=== PATIENT | male | born 1950 | race Caucasian/White ===

== ENCOUNTER 2023-12-01 08:48 | Outpatient (CLI) | payer MEDICARE, SELFPAY ==
[2023-12-01 09:21] LABS: Microscopic, Urine URINE MICROSCOPIC (MICROSCOPIC)
[2023-12-01 09:54] LABS: Appearance,Urine SL CLOUDY (Clear); Bilirubin,Urine Negative (Negative); Blood, Urine TRACE-I (Negative); Color,Urine YELLOW (Yellow); Glucose,Urine (UA) Negative (Negative); Ketones,Urine Negative (Negative); Leukocyte Esterase,Urine Negative (Negative); Nitrate,Urine Negative (Negative); PH,Urine 6.5 (5.0-8.5); Protein,Urine Negative (Negative); Specific Gravity, Urine 1.015 (1.005-1.030)
[2023-12-01 10:11] LABS: Bacteria,Urine 4+ /lpf
== END 2023-12-01 23:59 ==
LOC: LAB.DROPOF 08:55
PROVIDERS: PCP Internal Medicine Adolescent Medicine; Visit Provider Internal Medicine Adolescent Medicine
DX: R41.0 Disorientation, unspecified (principal); B96.89 Other specified bacterial agents as the cause of diseases classified elsewhere
CPT/HCPCS: 81001; 87086

== ENCOUNTER 2023-12-07 19:22 | Outpatient (CLI) | payer MEDICARE, SELFPAY ==
[2023-12-07 20:04] LABS: Basophils % 0.6 % (0.1-2.0); Eosinophils # 0.1 K/mm3 (0.0-0.4); Eosinophils % 2.6 % (0.1-12.0); Hematocrit 40.3 % (42.0-52.0); Hemoglobin 13.8 g/dL (14.1-18.0); Lymphocytes # 1.7 K/mm3 (0.7-4.5); Lymphocytes % 34.6 % (10-50); Mean Corpuscular HGB Conc 34.3 g/dL (31.8-35.4); Mean Corpuscular Hemoglobin 32.1 pg (27.0-31.2); Mean Corpuscular Volume 93.4 fl (80-94); Mean Platelet Volume 8.7 fl (7.4-10.4); Monocytes # 0.3 K/mm3 (0.1-1.0); Monocytes % 6.9 % (1.7-9.3); Neutrophils # 2.7 K/mm3 (1.8-7.8); Neutrophils % 55.1 % (37.0-80.0); Platelet Count 160 K/mm3 (142-424); Red Blood Count 4.32 M/mm3 (4.60-6.20); Red Cell Distribution Width 14.9 % (11.5-17.5); White Blood Count 4.8 K/mm3 (4.8-10.8)
[2023-12-07 22:21] LABS: Chloride 101 mmol/L (98-107); Sodium 138 mmol/L (136-145)
[2023-12-07 22:24] LABS: Blood Urea Nitrogen 16 mg/dl (9-20); Calcium 8.7 mg/dl (8.4-10.2); Carbon Dioxide 31 mmol/L (22.0-30.0); Estimated Glomerular Filt Rate 163 ml/min (>60); GFR (African American) 197 ML/MIN (>60); Glucose 158 mg/dl (74-100)
== END 2023-12-07 23:59 ==
LOC: LAB.DROPOF 19:23
PROVIDERS: Nurse Practitioner Family; PCP Internal Medicine Adolescent Medicine; Visit Provider Internal Medicine Adolescent Medicine
DX: R41.0 Disorientation, unspecified
CPT/HCPCS: 80048; 83735; 84443; 85025

== ENCOUNTER 2023-12-26 02:43 | Outpatient (CLI) | payer MEDICARE, SELFPAY ==
[2023-12-26 02:51] LABS: Microscopic, Urine URINE MICROSCOPIC (MICROSCOPIC)
[2023-12-26 02:54] LABS: Appearance,Urine TURBID (Clear); Bilirubin,Urine Negative (Negative); Blood, Urine Negative (Negative); Color,Urine YELLOW (Yellow); Glucose,Urine (UA) Negative (Negative); Ketones,Urine Negative (Negative); Leukocyte Esterase,Urine TRACE (Negative); Nitrate,Urine Negative (Negative); PH,Urine 7.5 (5.0-8.5); Protein,Urine Negative (Negative); Specific Gravity, Urine 1.015 (1.005-1.030)
[2023-12-26 03:05] LABS: Amorphous Sediment,Urine Trace /lpf; Bacteria,Urine 3+ /lpf; Squamous Epithelial Cell,Urine Occasional #/hpf (0-5)
== END 2023-12-26 23:59 ==
PROVIDERS: PCP Internal Medicine Adolescent Medicine; Visit Provider Internal Medicine Adolescent Medicine
DX: R41.0 Disorientation, unspecified (principal)
CPT/HCPCS: 81001; 87086

== ENCOUNTER 2024-01-14 18:02 | Inpatient (IN) | payer MEDICARE, BC, SELFPAY ==
[2024-01-14] VITALS (10 sets, daily range): BP systolic 92–114; BP diastolic 56–74; PULSE 84–102; RESP 15–21; TEMP 37–37.2; O2SAT 88–97; BMI 19.5
--- NOTE | 2024-01-14 18:06 | CT_ITS ---
PROCEDURE INFORMATION: Exam: CT Head Without Contrast Exam date and time: 01/14/2024 7:55 PM Age: 73 years old Clinical indication: Altered mental status/memory loss and other: Seizures; Confusion or disorientation; Additional info: Seizure like activity TECHNIQUE: Imaging protocol: Computed tomography of the head without contrast. Radiation optimization: All CT scans at this facility use at least one of these dose optimization techniques: automated exposure control; mA and/or kV adjustment per patient size (includes targeted exams where dose is matched to clinical indication); or iterative reconstruction. COMPARISON: No relevant prior studies available. FINDINGS: Brain: Old right cerebral infarct with involvement of the frontal, temporal, and parietal lobes. Extensive white matter change in the residual white matter appears to reflect chronic microvascular disease. There is some low-density in the anterior right brainstem (image 27 series 3). No evidence for acute intracranial hemorrhage. No midline shift or mass effect. Cerebral ventricles: Ex vacuo dilatation of the right lateral ventricle is noted. Paranasal sinuses: Visualized sinuses are unremarkable. No fluid levels. Mastoid air cells: Visualized mastoid air cells are well aerated. Dental: There is dental amalgam which causes streak artifact and mildly limits evaluation of the oral cavity. Bones/joints: Unremarkable. No acute fracture. Soft tissues: Unremarkable. Other findings: Motion artifact mildly limits evaluation. IMPRESSION: Old large territorial right cerebral infarct. Additional scattered areas of hypodensity including within the brainstem which appear chronic and related to white matter change but for which MRI should be considered.
--- NOTE | 2024-01-14 18:06 | XR_ITS ---
PROCEDURE INFORMATION: Exam: XR Chest Exam date and time: 01/14/2024 7:13 PM Age: 73 years old Clinical indication: Other: AMS, seizures TECHNIQUE: Imaging protocol: Radiologic exam of the chest. Views: 1 view. COMPARISON: No relevant prior studies available. FINDINGS: Tubes, catheters and devices: There is a left chest implanted cardiac device. Lungs: Prominence of the central pulmonary vasculature with small perihilar consolidations difficult to exclude. Pleural spaces: No large effusion or pneumothorax. Heart/Mediastinum: No evidence of mediastinal widening or cardiac silhouette enlargement; the mediastinum and heart appear within normal limits for contour and size. Diaphragm: There is elevation of the left hemidiaphragm. Bones/joints: No evidence of acute osseous abnormalities within the visualized portions of the thoracic spine and ribs. Osseous structures appear appropriate for patient age. Other findings: The patient is rotated on the examination which somewhat alters the expected anatomic relationships and limits the study. IMPRESSION: Prominence of the central pulmonary vasculature with small perihilar consolidations difficult to exclude.
--- NOTE | 2024-01-14 18:12 | CT_ITS ---
PROCEDURE INFORMATION: Exam: CTA Neck With Contrast Exam date and time: 01/14/2024 7:57 PM Age: 73 years old Clinical indication: Convulsions / seizures; Type not specified; Additional info: Seizure like activity, L gaze preference TECHNIQUE: Imaging protocol: Computed tomographic angiography of the neck with contrast. Exam focused on the cervical segments of the vasculature. 3D rendering (Not supervised by radiologist): MIP and/or 3D reconstructed images were created by the technologist. Radiation optimization: All CT scans at this facility use at least one of these dose optimization techniques: automated exposure control; mA and/or kV adjustment per patient size (includes targeted exams where dose is matched to clinical indication); or iterative reconstruction. Contrast material: ISOVUE 370; Contrast volume: 100 ml; Contrast route: INTRAVENOUS (IV); COMPARISON: 1. CT ANGIO HEAD 01/14/2024 7:[address] HEAD/BRAIN WO CON 01/14/2024 7:55 PM 3. CR XR CHEST PORTABLE 01/14/2024 7:13 PM FINDINGS: Tubes, catheters and devices: There is a left chest implanted cardiac device. Right common carotid artery: No stenosis. No dissection or occlusion. Right internal carotid artery: No stenosis of the extracranial segment. No dissection or occlusion. Right external carotid artery: No occlusion or stenosis of the origin. Left common carotid artery: No stenosis. No dissection or occlusion. Left internal carotid artery: No stenosis of the extracranial segment. No dissection or occlusion. Left external carotid artery: No occlusion or stenosis of the origin. Right vertebral artery: No stenosis. No dissection or occlusion. Left vertebral artery: No stenosis. No dissection or occlusion. Diminutive left vertebral artery with a right dominant vertebrobasilar system. Soft tissues: Normal. No significant soft tissue swelling. Bones/joints: No acute fracture. IMPRESSION: No stenosis or occlusion. REFERENCES: NASCET CRITERIA. The degree of stenosis in the cervical segment of the internal carotid artery is based on NASCET criteria. Normal is no stenosis. Mild is less than 50% stenosis. Moderate is 50-69% stenosis. Severe is 70% to 99% stenosis. Total occlusion is no detectable patent lumen.
--- NOTE | 2024-01-14 18:12 | CT_ITS ---
PROCEDURE INFORMATION: Exam: CTA Head With Contrast, Arteriography Exam date and time: 01/14/2024 7:57 PM Age: 73 years old Clinical indication: Other: Seizures; Additional info: Seizure like activity, L gaze preference TECHNIQUE: Imaging protocol: Computed tomographic angiography of the head with contrast. Exam focused on the arteries. 3D rendering (Not supervised by radiologist): MIP and/or 3D reconstructed images were created by the technologist. Radiation optimization: All CT scans at this facility use at least one of these dose optimization techniques: automated exposure control; mA and/or kV adjustment per patient size (includes targeted exams where dose is matched to clinical indication); or iterative reconstruction. Contrast material: ISOVUE 370; Contrast volume: 100 ml; Contrast route: INTRAVENOUS (IV); COMPARISON: 1. CT HEAD/BRAIN WO CON 01/14/2024 7:[address] ANGIO NECK 01/14/2024 7:57 PM FINDINGS: ANTERIOR CIRCULATION: Right internal carotid artery: There is a relatively diminutive right internal carotid artery. Right middle cerebral artery: There is is significantly diminutive right middle cerebral artery. No evidence for acute large vessel occlusion. Right anterior cerebral artery: No occlusion or significant stenosis. No aneurysm. Left internal carotid artery: Intracranial segment is patent with no significant stenosis. No aneurysm. Left middle cerebral artery: No occlusion or significant stenosis. No aneurysm. Left anterior cerebral artery: No occlusion or significant stenosis. No aneurysm. POSTERIOR CIRCULATION: Right vertebral artery: No occlusion or significant stenosis. No aneurysm. Left vertebral artery: No occlusion or significant stenosis. No aneurysm. Basilar artery: No occlusion or significant stenosis. No aneurysm. Right posterior cerebral artery: No occlusion or significant stenosis. No aneurysm. Left posterior cerebral artery: No occlusion or significant stenosis. No aneurysm. Brain: No definite mass, mass effect, or midline shift. Cerebral ventricles: No ventriculomegaly. Bones/joints: Unremarkable. No acute fracture. Soft tissues: Unremarkable. IMPRESSION: Significantly diminutive right internal carotid and middle cerebral arteries, likely sequela of old infarct. No acute large vessel occlusion or vascular anomaly is identified.
[2024-01-14] MEDS: LORazepam 2MG/ML VIAL 2 MG IV (18:18)
[2024-01-14] MEDS: levETIRAcetam 2,000 MG in 0.9 % SODIUM CHLORIDE 100 ML 240 MG IV (18:30)
--- NOTE | 2024-01-14 18:34 | ED_ITS ---
Discharge Plan Disposition Patient Disposition: Admitted Clinical Impressions Clinical Impression: Breakthrough seizure, Altered mental status, Elevated troponin Discharge ED Provider: Beckie Diaz General Adult HPI General Chief complaint: Seizure Stated complaint: seizures Time Seen by Provider: 01/14/24 18:05 Mode of Arrival: EMS Source of Information: EMS Limitations: Physical Limitations Description of Symptoms (Recalled from ER Triage Doc. by RN): Per EMS patient has been having reoccuring seizures. 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 According nursing facility report, the patient has had seizure-like activity today. EMS noted that he did have a brief 22nd seizure en route, which resolved spontaneously with no abortive medications administered. Otherwise, he remained stable en route, but confused. He was able to talk to them. Per nursing facility, his baseline is alert but pleasantly confused. No other acute concerns noted at this time. Related Data Home Medications Medication Instructions Recorded Confirmed atorvastatin 80 mg tablet 80 mg feeding tube ONCE Cholesterol 01/14/24 01/14/24 famotidine 40 mg tablet 40 mg feeding tube DAILY 01/14/24 01/14/24 finasteride 5 mg tablet 5 mg feeding tube DAILY 01/14/24 01/14/24 fluticasone propionate 50 1 spray intranasal DAILY allergies 01/14/24 01/14/24 mcg/actuation nasal spray,suspension furosemide 20 mg tablet 20 mg PO DAILY diuretic 01/14/24 01/14/24 ipratropium 0.5 mg-albuterol 3 mg 1 ml inhalation QID Breathing 01/14/24 01/14/24 (2.5 mg base)/3 mL nebulization Problems soln levetiracetam 750 mg tablet 750 mg PO BID 01/14/24 01/14/24 metoprolol succinate 25 mg 25 mg PO DAILY 01/14/24 01/14/24 tablet,extended release 24 hr ondansetron 4 mg disintegrating 4 mg feeding tube Q8HP PRN Nausea 01/14/24 01/14/24 tablet rivaroxaban 20 mg tablet (Xarelto) 20 mg G-tube DAILY 01/14/24 01/14/24 sertraline 50 mg tablet 1 mg feeding tube DAILY Depression 01/14/24 01/14/24 valsartan 40 mg tablet 20 mg feeding tube DAILY 01/14/24 01/14/24 Allergies Allergy/AdvReac Type Severity Reaction Status Date / Time No Known Allergies Allergy Verified 01/14/24 18:14 [facility] Disclaimer: The information contained in this section may have been updated after the patient was seen, as this information can be updated by other users. Social History Smoking Status: Never smoker alcohol intake: never current occupational status: retired Travel in the last 8 weeks: None ROS Obtained: Yes All systems reviewed & no additional complaints except as documented Physical Exam General General appearance: in distress Comment: Appears to be seizing on initial evaluation with left gaze preference/eye twitching and twitching movements of his right upper and lower extremity. Head Head exam: atraumatic and normocephalic Eye Eye exam: Present PERRL and other (Left gaze preference) ENT ENT exam: Present normal exam, normal oropharynx, mucous membranes moist and normal external ear exam Neck Neck exam: Present normal inspection, full ROM and trachea midline; Absent tenderness Chest Chest inspection: Present normal inspection and symmetric chest wall rise; Absent tenderness Respiratory Respiratory exam: Present normal lung sounds bilaterally; Absent respiratory distress, wheezes, stridor or accessory muscle use Cardiovascular Cardiovascular exam: Present regular rate and normal rhythm Abdominal Exam Abdominal exam: Present soft; Absent distention, tenderness, guarding, rebound or rigidity Extremities Exam Extremities exam: Present normal inspection, full ROM and normal capillary refill; Absent tenderness or edema Back Exam Back exam: Present normal inspection and full ROM; Absent tenderness Neurological Exam Neurological exam: Present other (Actively seizing on initial presentation.) Skin Skin exam: Present warm and dry Medical Decision Making Medical Records Medical records reviewed: Yes I reviewed the patient's medical records. [place] Inquiry Pt receiving controlled substance: No Vital Signs: 01/14/24 18:03 01/14/24 19:00 01/14/24 19:30 Temperature 98.6 F Temperature Source Axillary Pulse Rate 102 H 97 H Pulse Rate [Radial] 95 H Respiratory Rate 18 15 17 Blood Pressure 111/70 112/74 Blood Pressure [Right Arm] 92/56 L Blood Pressure Mean Blood Pressure Mean [Right Arm] 68 Blood Pressure Source Blood Pressure Source [Right Arm] Automatic Cuff Blood Pressure Position Blood Pressure Position [Right Arm] Supine 02 Sat by Pulse Oximetry 91 L 92 L 92 L Oxygen Delivery Method Room Air 01/14/24 20:09 01/14/24 20:30 01/14/24 21:00 Temperature Temperature Source Pulse Rate 94 H 99 H Pulse Rate [Radial] Respiratory Rate Blood Pressure 112/70 100/66 L 104/64 L Blood Pressure [Right Arm] Blood Pressure Mean 80 75 Blood Pressure Mean [Right Arm] Blood Pressure Source Blood Pressure Source [Right Arm] Blood Pressure Position Blood Pressure Position [Right Arm] 02 Sat by Pulse Oximetry 92 L 88 L Oxygen Delivery Method 01/14/24 21:30 01/14/24 22:00 01/14/24 22:30 Temperature Temperature Source Pulse Rate 86 89 Pulse Rate [Radial] Respiratory Rate 21 16 16 Blood Pressure 112/73 105/63 L 114/67 Blood Pressure [Right Arm] Blood Pressure Mean Blood Pressure Mean [Right Arm] Blood Pressure Source Blood Pressure Source [Right Arm] Blood Pressure Position Blood Pressure Position [Right Arm] 02 Sat by Pulse Oximetry 96 93 L 97 Oxygen Delivery Method 01/14/24 23:00 Temperature 98.9 F Temperature Source Oral Pulse Rate 84 Pulse Rate [Radial] Respiratory Rate 18 Blood Pressure 110/72 Blood Pressure [Right Arm] Blood Pressure Mean Blood Pressure Mean [Right Arm] Blood Pressure Source Automatic Cuff Blood Pressure Source [Right Arm] Blood Pressure Position Supine Blood Pressure Position [Right Arm] 02 Sat by Pulse Oximetry Oxygen Delivery Method Room Air Lab Data Lab results reviewed: Yes I reviewed the patient's lab results. Lab Results 01/14/24 18:06: VBG pH 7.34, VBG pCO2 49.2, VBG pO2 98.3 H, VBG HCO3 26.1, VBG Total CO2 27.6 H, VBG O2 Saturation 97.3 H, VBG Base Excess 0.3 01/14/24 18:59: WBC 7.9, RBC 4.51 L, Hgb 14.7, Hct 44.4, MCV 98.4 H, MCH 32.6 H, MCHC 33.1, RDW 13.7, Plt Count 195, MPV 9.3, Neut % (Auto) 75.0, Lymph % (Auto) 17.4, Mcminn % (Auto) 5.5, Eos % (Auto) 1.4, Baso % (Auto) 0.7, Neut # (Auto) 5.9, Lymph # (Auto) 1.4, Mcminn # (Auto) 0.4, Eos # (Auto) 0.1, Baso # (Auto) 0.1, PT 11.9, INR 1.11 H, APTT 27.5, Sodium 137, Potassium 3.7, Chloride 101, Carbon Dioxide 27, Anion Gap 12.7, BUN 18, Creatinine 0.60 L, Estimated Creat Clear 68, Estimated GFR 132, Est GFR ( Amer) 160, Glucose 105 H, Calcium 9.2, Total Bilirubin 0.3, AST 30, ALT 31, Alkaline Phosphatase 69, Troponin I 0.10 H, NT-Pro-B Natriuret Pep 736 H, Total Protein 6.8, Albumin 4.0, Globulin 2.8, Albumin/Globulin Ratio 1.4, Lipase 48 01/14/24 19:22: VBG Lactic Acid 5.0 H 01/14/24 21:00: Urine Color Yellow, Urine Appearance Clear, Urine pH 7.5, Ur Specific [place] 1.010, Urine Protein Trace, Urine Glucose (UA) Negative, Urine Ketones Negative, Urine Blood Negative, Urine Nitrate Negative, Urine Bilirubin Negative, Urine Urobilinogen 0.2, Ur Leukocyte Esterase Negative, Urine RBC None, Urine WBC None, Ur Squamous Epith Cells Occasional, Urine Bacteria None 01/14/24 21:25: Troponin I 0.33 H 01/14/24 18:59 01/14/24 18:59 Orders (Tests/Meds): ED MEDICATIONS Generic Name Dose Route Start Last Admin Trade Name Freq PRN Reason Stop Dose Admin Acetaminophen 650 mg 01/14/24 22:30 Acetaminophen 325mg Tab PO 02/13/24 22:29 Q4HP PRN Fever or Mild Pain (1-3) Enoxaparin Sodium 40 mg 01/15/24 09:00 Enoxaparin 40mg/0.4ml Syringe SQ 02/14/24 08:59 DAILY JOSE D Sodium Chloride 1,000 mls @ 50 mls/hr 01/14/24 22:30 Sod Chlor 0.9% 1000ml Bag IV 02/13/24 22:29 .Q20H JOSE D Levetiracetam 1,000 mg/ Sodium 110 mls @ 220 mls/hr 01/15/24 09:00 Chloride IV 02/14/24 08:59 BID JOSE D Morphine Sulfate 2 mg 01/14/24 22:30 Morphine 2mg/Ml Syringe IV 02/13/24 22:29 Q2HP PRN Severe Pain (7-10) Nicotine 21 mg 01/14/24 22:30 Nicotine 21mg/24hr Patch TD 02/13/24 22:29 DAILYP PRN Nicotine Cravings Nitroglycerin 0.4 mg 01/14/24 22:32 Nitroglycerin 0.4mg Sl Tablet SL 02/13/24 22:31 Q5MINP PRN Chest Pain Ondansetron HCl 4 mg 01/14/24 22:30 Ondansetron 4mg/2ml Vial IV 02/13/24 22:29 Q8HP PRN Nausea Pantoprazole Sodium 40 mg 01/15/24 09:00 Pantoprazole 40mg Tablet PO 02/14/24 08:59 DAILY JOSE D Sodium Chloride 10 ml 01/14/24 18:12 Sodium Chloride 0.9% 10ml Vial IV 02/13/24 18:11 NEEDED PRN to Dilute Lorazepam inj Sodium Chloride 10 ml 01/14/24 18:14 Sodium Chloride 0.9% 10ml Vial IV 02/13/24 18:13 NEEDED PRN to Dilute Lorazepam inj Discontinued Medications Generic Name Dose Route Start Last Admin Trade Name Freq PRN Reason Stop Dose Admin Levetiracetam 2,000 mg/ Sodium 120 mls @ 240 mls/hr 01/14/24 18:09 01/14/24 18:30 Chloride IV 01/14/24 18:10 240 mls/hr ONCE ONE Administration Lactated Ringer's 1,000 mls @ 999 mls/hr 01/14/24 18:09 01/14/24 19:10 Lactated Ringer's 1000 Ml Bag IV 01/14/24 19:09 999 mls/hr .Q1H1M ONE Administration Iopamidol 100 ml 01/14/24 20:00 01/14/24 20:00 Iopamidol-370 (76%);100ml Bottle IV 01/14/24 20:01 100 ml ONCE ONE Administration Lorazepam 2 mg 01/14/24 18:12 01/14/24 18:18 Lorazepam 2mg/Ml Vial IV 01/14/24 18:13 2 mg ONCE ONE Administration Lorazepam 4 mg 01/14/24 18:14 01/14/24 23:08 Lorazepam 2mg/Ml Vial IV 01/14/24 18:15 Not Given ONCE ONE Sodium Chloride 10 ml 01/14/24 20:00 01/14/24 20:00 Sodium Chloride 0.9% 10ml Syr (Rad Only) IV 01/14/24 20:01 10 ml ONCE ONE Administration Sodium Chloride 50 ml 01/14/24 20:00 01/14/24 20:00 0.9 % Sodium Chloride 50 Ml Vial IV 01/14/24 20:01 50 ml ONCE ONE Administration ORDERS Category Date Time Status CT angio head Stat Cat Scan 01/14/24 18:[address] angio neck Stat Cat Scan 01/14/24 18:[address] head/brain wo con Stat Cat Scan 01/14/24 18:06 Completed Consult to Cardiology [CONS] Routine Cons 01/14/24 22:28 Active XR chest portable Stat Exams 01/14/24 18:06 Completed Activated Partial Thrombo Time Stat Lab 01/14/24 18:59 Completed Ammonia Stat Lab 01/14/24 18:06 Ordered Brain Natriuretic Peptide Stat Lab 01/14/24 18:59 Completed Complete Blood Count Auto Diff AMLAB Lab 01/15/24 06:00 Ordered Complete Blood Count Auto Diff Stat Lab 01/14/24 18:59 Completed Comprehensive Metabolic Panel AMLAB Lab 01/15/24 06:00 Ordered Comprehensive Metabolic Panel Stat Lab 01/14/24 18:59 Completed Lactate Venous Stat Lab 01/14/24 19:22 Completed Lipase Stat Lab 01/14/24 18:59 Completed Magnesium AMLAB Lab 01/15/24 06:00 Ordered Prothrombin Time INR Stat Lab 01/14/24 18:59 Completed Troponin I Q3H Lab 01/14/24 21:25 Completed Troponin I Q3H Lab 01/15/24 00:15 Ordered Troponin I Stat Lab 01/14/24 18:59 Completed Urinalysis and Microscopic Stat Lab 01/14/24 21:00 Completed Blood Culture Stat Micro 01/14/24 21:00 Received Urine Culture Stat Micro 01/14/24 21:00 Received Venous Blood Gas Stat RT 01/14/24 18:06 Completed ECG initial [place] Routine Y 01/14/24 19:05 Completed ECG Data Tracing #1: I reviewed this ECG and interpreted as documented below: Sinus tachycardia with a ventricular rate of 100 bpm. Interventricular conduction delay and left axis deviation. No significant changes noted from prior EKG from [facility] from 11/07. ECG initial impression date: 01/14/24 ECG initial impression time: 19:07 Tracing #2: I reviewed this ECG and interpreted as documented below: Normal sinus rhythm with a ventricular rate of 89 bpm. Acute changes from prior EKG with deeper T wave inversions in V3 V4. Does not meet STEMI criteria. ECG initial impression date: 01/14/24 ECG initial impression time: 22:26 Medical Decision Narrative: In summary, this patient is a 73-year-old male presenting to the Emergency Department for evaluation of seizures. Differential diagnoses considered include but are not limited to breakthrough seizures, intracranial hemorrhage, new CVA, intracranial mass, urinary tract infection, pneumonia. Ruling out the most morbid conditions drove assessment. On my initial assessment, I found the patient to be actively having a seizure. This resolved spontaneously, however given the frequent recurrence of seizures, he was given 2 mg of IV Ativan. Loaded with 2 g of Keppra. Workup included very broad evaluation including stroke CTs and CT angiograms, infectious workup, metabolic workup, and cardiac workup. I independently interpreted CT scans as well as chest x-ray prior to the radiologist read and noted no obvious new stroke, bleed, pneumonia, or other concerning. Please see their read for final interpretation. Labs were obtained that demonstrated elevated initial troponin of 0.10 as well as very mildly elevated BNP. Lactic acid is also elevated, which I feel is a result of the seizure activity that the patient has been having. Labs are otherwise reassuring with no acute concerns for infection such as leukocytosis or other issue. Electrolytes are within appropriate range. On multiple subsequent reassessments, the patient is resting comfortably with reassuring vital signs on cardiac telemetry. He has been very somnolent since administration of antiepileptics, however he is maintaining his airway well and arouses to voice. I had an indirect discussion with [facility] stroke team who advised that the patient does not have any acute stroke or LVO based on imaging. I then had an interactive discussion with her neurology team over the phone with regards to his seizure. Dr. Noel advised to increase his Keppra from 750 mg twice daily to 1000 mg twice daily. He also advised that he should follow-up outpatient sooner than his already scheduled appointment. He advised that we could keep him here for monitoring. Since he has not had recurrence of seizure-like activity over the course of 4 hours since arrival and administration of abortive medications, he advised that there is no indication for transfer. In the meantime, repeat troponin was obtained at 3 hours which demonstrated elevation to 0.33. Repeat EKG was obtained that did demonstrate some acute dynamic changes, however does not meet STEMI criteria. I called and had an interactive discussion with Dr. De La Paz with cardiology who advised he is no concern for ACS based on the EKG, however he will be happy to evaluate the patient in the hospital. Given his persistent altered mental status after this seizure-like activity, elevated troponins, and EKG changes, I called and had an interactive discussion with the hospitalist who admitted the patient for further evaluation and management. Critical Care Critical Care Time Critical Care Time: Yes Attestation: On 01/14/24, the high probability of a clinically significant, sudden or life threatening deterioration of the following system(s) (neurologic, cardiovascular, respiratory) required my full and direct attention, intervention and personal management. The time I documented below is in addition to time spent performing reported procedures but includes the following listed in this critical care notation. Total Time Total Critical Care Time: 45
--- NOTE | 2024-01-14 19:05 | ECG_ITS ---
APPROVED REPORT Exam: Resting ECG HR:100 bpm ECG Measurements Heart Rate 100 AXES DC 166 P 40 QRSd 133 QRS -61 QT 362 T 116 QTc 419 Conclusion SINUS TACHYCARDIA INTRAVENTRICULAR CONDUCTION DELAY [130+ ms QRS DURATION] LEFT VENTRICULAR HYPERTROPHY AND ST-T CHANGE - ? age of finding UNCONFIRMED REPORT Electronically signed by : José Luis Kaufman MD 01/15/2024 19:30:52
[2024-01-14] MEDS: LACTATED RINGERS 1000ML 1,000 ML 999 ML IV (19:10)
[2024-01-14 19:21] LABS: Chloride 101 mmol/L (98-107)
[2024-01-14 19:22] LABS: Activated Partial Thrombo Time 27.5 seconds (22.8-30.6); INR 1.11 (0.9-1.1); Potassium 3.7 mmoL/L (3.5-5.1); Prothrombin Time 11.9 seconds (10.1-12.5); Sodium 137 mmol/L (136-145)
[2024-01-14 19:24] LABS: Alanine Aminotransferase 31 U/L (12-78); Alkaline Phosphatase 69 U/L (38-126); Anion Gap 12.7 mEq/L (5-15); Aspartate Amino Transferase 30 U/L (17-59); Bilirubin,Total 0.3 mg/dl (0.2-1.3); Carbon Dioxide 27 mmol/L (22.0-30.0); Lipase 48 U/L (23-300)
[2024-01-14 19:25] LABS: Albumin/Globulin Ratio 1.4 (1.1-1.8); Calcium 9.2 mg/dl (8.4-10.2); Globulin 2.8 g/dL (1.3-3.2); Glucose 105 mg/dl (74-100); Total Protein,Serum 6.8 g/dl (6.3-8.2)
[2024-01-14 19:26] LABS: Basophils # 0.1 K/mm3 (0-0.2); Basophils % 0.7 % (0.1-2.0); Eosinophils # 0.1 K/mm3 (0.0-0.4); Eosinophils % 1.4 % (0.1-12.0); Hematocrit 44.4 % (42.0-52.0); Hemoglobin 14.7 g/dL (14.1-18.0); Lymphocytes # 1.4 K/mm3 (0.7-4.5); Lymphocytes % 17.4 % (10-50); Mean Corpuscular HGB Conc 33.1 g/dL (31.8-35.4); Mean Corpuscular Hemoglobin 32.6 pg (27.0-31.2); Mean Corpuscular Volume 98.4 fl (80-94); Mean Platelet Volume 9.3 fl (7.4-10.4); Monocytes # 0.4 K/mm3 (0.1-1.0); Monocytes % 5.5 % (1.7-9.3); Neutrophils # 5.9 K/mm3 (1.8-7.8); Platelet Count 195 K/mm3 (142-424); Red Blood Count 4.51 M/mm3 (4.60-6.20); Red Cell Distribution Width 13.7 % (11.5-17.5); White Blood Count 7.9 K/mm3 (4.8-10.8)
[2024-01-14 19:32] LABS: VBG Base Excess 0.3 mmol/L (-2.4-2.3); VBG HCO3 26.1 mmol/L (23-30); VBG Oxygen Saturation 97.3 % (50-70); VBG PCO2 49.2 mmol/L (35-51); VBG PH 7.34 mmol/L (7.31-7.41); VBG PO2 98.3 mmol/L (28-40); VBG Total CO2 27.6 mmol/L (23-27)
[2024-01-14 19:36] LABS: Blood Urea Nitrogen 18 mg/dl (9-20); Creatinine Clearance Estimated 68 mL/min (50-200); Estimated Glomerular Filt Rate 132 ml/min (>60); GFR (African American) 160 ML/MIN (>60)
[2024-01-14 19:49] LABS: NT Pro Brain Natriuretic Pep. 736 pg/mL (0-125)
[2024-01-14] MEDS: IOPAMIDOL-370 (76%);100ML BOTTLE 100 ML IV (20:00)
[2024-01-14] MEDS: SODIUM CHLORIDE 0.9% 10ML SYR (RAD ONLY) 10 ML IV (20:00)
[2024-01-14] MEDS: 0.9 % SODIUM CHLORIDE 50 ML VIAL IV (20:00)
[2024-01-14 21:20] LABS: Microscopic, Urine URINE MICROSCOPIC (MICROSCOPIC)
[2024-01-14 21:27] LABS: Appearance,Urine CLEAR (Clear); Bilirubin,Urine Negative (Negative); Blood, Urine Negative (Negative); Color,Urine YELLOW (Yellow); Glucose,Urine (UA) Negative (Negative); Ketones,Urine Negative (Negative); Leukocyte Esterase,Urine Negative (Negative); Nitrate,Urine Negative (Negative); PH,Urine 7.5 (5.0-8.5); Protein,Urine TRACE (Negative); Urobilinogen,Urine 0.2 EU/dl (0.2)
--- NOTE | 2024-01-14 21:32 | PC.NURSE ---
2nd mcgraw collected and sent to lab
--- NOTE | 2024-01-14 21:40 | PC.NURSE ---
spoke with Sarah @ [facility] transfer center, Dr. Natalie Lagunas being paged. Images power shared and disc requested
--- NOTE | 2024-01-14 21:42 | PC.NURSE ---
ED doctor on phone with Dr. Lagunas @ [facility]
--- NOTE | 2024-01-14 21:52 | PC.NURSE ---
on phone with
[2024-01-14 22:02] LABS: Troponin I 0.33 ng/ml (0.00-0.034)
[2024-01-14 22:11] LABS: Squamous Epithelial Cell,Urine Occasional #/hpf (0-5)
--- NOTE | 2024-01-14 22:21 | ECG_ITS ---
APPROVED REPORT Exam: Resting ECG HR:89 bpm ECG Measurements Heart Rate 89 AXES NM 179 P 63 QRSd 135 QRS -70 QT 377 T 129 QTc 423 Conclusion SINUS RHYTHM INTRAVENTRICULAR CONDUCTION DELAY [130+ ms QRS DURATION] ANTEROSEPTAL MYOCARDIAL INFARCTION of uncertain age UNCONFIRMED REPORT Electronically signed by : José Luis Kaufman MD 01/15/2024 19:30:09
--- NOTE | 2024-01-14 22:32 | P.HP_ITS ---
Attending attestation Patient was seen and evaluated at the bedside myself, agree with VIVIAN note. History of Present Illness *Admission Date: 01/14/24 *Reason for visit:: seizure *History of present illness: This is a 73-year-old male with a history of seizure disorder, [place], atrial fibrillation, CVA with residual left-sided deficits managed on Keppra presenting to the emergency department for evaluation with concern for seizure-like activity at the nursing facility. According nursing facility report, the patient has had seizure-like activity today. EMS noted that he did have a brief 22nd seizure en route, which resolved spontaneously with no abortive medications administered. Otherwise, he remained stable en route, but confused. He was able to talk to them. Per nursing facility, his baseline is alert but pleasantly confused. No other acute concerns noted at this time. admitted for further work up. [facility] Disclaimer: The information contained in this section may have been updated after the patient was seen, as this information can be updated by other users. Medical History (Updated 01/15/24 @ 04:17 by Umer Awan APRN) Heart attack Stroke Family History (Updated 01/15/24 @ 00:58 by Iris Jo RN) Other Family history of cancer Family history of diabetes mellitus Social History (Updated 01/15/24 @ 00:52 by Iris Jo RN) Smoking Status: Former smoker alcohol intake: never current occupational status: retired Travel in the last 8 weeks: None Review of Systems Review of Systems Review of systems:: unable to obtain Meds Home Medications and Allergies Home Medications Medication Instructions Recorded Confirmed Type atorvastatin 80 mg tablet 80 mg feeding tube ONCE Cholesterol 01/14/24 01/14/24 History famotidine 40 mg tablet 40 mg feeding tube DAILY 01/14/24 01/14/24 History finasteride 5 mg tablet 5 mg feeding tube DAILY 01/14/24 01/14/24 History fluticasone propionate 50 1 spray intranasal DAILY allergies 01/14/24 01/14/24 History mcg/actuation nasal spray,suspension furosemide 20 mg tablet 20 mg PO DAILY diuretic 01/14/24 01/14/24 History ipratropium 0.5 mg-albuterol 3 mg 1 ml inhalation QID Breathing 01/14/24 01/14/24 History (2.5 mg base)/3 mL nebulization Problems soln levetiracetam 750 mg tablet 750 mg PO BID 01/14/24 01/14/24 History metoprolol succinate 25 mg 25 mg PO DAILY 01/14/24 01/14/24 History tablet,extended release 24 hr ondansetron 4 mg disintegrating 4 mg feeding tube Q8HP PRN Nausea 01/14/2412/18 History tablet rivaroxaban 20 mg tablet (Xarelto) 20 mg G-tube DAILY 01/14/24 01/14/24 History sertraline 50 mg tablet 1 mg feeding tube DAILY Depression 01/14/24 01/14/24 History valsartan 40 mg tablet 20 mg feeding tube DAILY 01/14/24 01/14/24 History New Prescriptions to Start Prescriptions: Allergies Allergy/AdvReac Type Severity Reaction Status Date / Time No Known Allergies Allergy Verified 01/14/24 18:14 Exam Data for Last 24 hours Vital signs and Labs for Last 24 Hours: Temp Pulse Resp BP Pulse Ox O2 Del Method 98.6 F 86 21 112/73 96 Room Air 01/14/24 18:03 01/14/24 21:30 01/14/24 21:30 01/14/24 21:30 01/14/24 21:30 01/14/24 18:03 Laboratory Results - last 24 hr 01/14/24 18:06: VBG pH 7.34, VBG pCO2 49.2, VBG pO2 98.3 H, VBG HCO3 26.1, VBG Total CO2 27.6 H, VBG O2 Saturation 97.3 H, VBG Base Excess 0.3 01/14/24 18:59: WBC 7.9, RBC 4.51 L, Hgb 14.7, Hct 44.4, MCV 98.4 H, MCH 32.6 H, MCHC 33.1, RDW 13.7, Plt Count 195, MPV 9.3, Neut % (Auto) 75.0, Lymph % (Auto) 17.4, Edwards % (Auto) 5.5, Eos % (Auto) 1.4, Baso % (Auto) 0.7, Neut # (Auto) 5.9, Lymph # (Auto) 1.4, Edwards # (Auto) 0.4, Eos # (Auto) 0.1, Baso # (Auto) 0.1, PT 11.9, INR 1.11 H, APTT 27.5, Sodium 137, Potassium 3.7, Chloride 101, Carbon Dioxide 27, Anion Gap 12.7, BUN 18, Creatinine 0.60 L, Estimated Creat Clear 68, Estimated GFR 132, Est GFR ( Amer) 160, Glucose 105 H, Calcium 9.2, Total Bilirubin 0.3, AST 30, ALT 31, Alkaline Phosphatase 69, Troponin I 0.10 H, NT-Pro-B Natriuret Pep 736 H, Total Protein 6.8, Albumin 4.0, Globulin 2.8, Albumin/Globulin Ratio 1.4, Lipase 48 01/14/24 19:22: VBG Lactic Acid 5.0 H 01/14/24 21:00: Urine Color Yellow, Urine Appearance Clear, Urine pH 7.5, Ur Specific [place] 1.010, Urine Protein Trace, Urine Glucose (UA) Negative, Urine Ketones Negative, Urine Blood Negative, Urine Nitrate Negative, Urine Bilirubin Negative, Urine Urobilinogen 0.2, Ur Leukocyte Esterase Negative, Urine RBC None, Urine WBC None, Ur Squamous Epith Cells Occasional, Urine Bacteria None 01/14/24 21:25: Troponin I 0.33 H I & O for Last 24 hours: Intake & Output 01/11/24 01/12/24 01/13/24 01/14/24 23:59 23:59 23:59 23:59 Weight 72.575 kg Constitutional Constitutional: mild distress and cooperative *Routine HEENT Exam Head: Present normocephalic and atraumatic Eye: Present EOMI, PERRL and normal accommodation ENT: Present mucous membranes moist *Routine Neck Exam Neck: Present supple, full ROM and trachea midline *Routine Respiratory Exam Respiratory: Present CTA bilaterally, respiratory distress, normal respiratory effort and symmetric chest movement *Routine Cardiovascular Exam Cardiovascular: Present RRR, Normal S1 and Normal S2 *Routine Abdominal Exam Abdominal: Present soft and normoactive bowel sounds; Absent tenderness, distended or organomegaly Comments: g tube *Routine Rectal Exam Rectal:: deferred *Routine Genitalia Exam Genitalia:: deferred *Routine Extremities Exam Extremities: Present full ROM and pulses intact; Absent cyanosis, clubbing or edema *Routine Skin Exam Skin: Absent cyanosis, erythema or rash *Routine Neurological Exam Neurological: Present altered mental status Routine Psychiatric Exam Psychiatric: Present unable to assess H&P: Result Imaging and Cardiology CT scan - head: Status: image reviewed by me, Preliminary report and final report Assessment and Plan *Assessment and plan (1) Breakthrough seizure: Status: Acute Category: Medical Code(s): G40.919 - Epilepsy, unspecified, intractable, without status epilepticus (2) Altered mental status: Status: Acute Qualifiers: Altered mental status type: transient alteration of awareness Qualified Code(s): R40.4 - Transient alteration of awareness Category: Medical Code(s): R41.82 - Altered mental status, unspecified (3) Elevated troponin: Status: Acute Category: Medical Code(s): R79.89 - Other specified abnormal findings of blood chemistry (4) Stroke: Problem Comment: old Status: Acute Qualifiers: CVA mechanism: unspecified Qualified Code(s): I63.9 - Cerebral infarction, unspecified Category: Medical Code(s): I63.9 - Cerebral infarction, unspecified (5) HTN (hypertension): Status: Acute Qualifiers: Hypertension type: unspecified Qualified Code(s): I10 - Essential (primary) hypertension Category: Medical Code(s): I10 - Essential (primary) hypertension (6) CAD (coronary artery disease): Status: Acute Qualifiers: Associated angina: unspecified whether angina present Coronary Disease- Associated Artery/Lesion type: [place] artery [place] vs. transplanted heart: [place] heart Qualified Code(s): I25.10 - Atherosclerotic heart disease of [place] coronary artery without angina pectoris Category: Medical Code(s): I25.10 - Atherosclerotic heart disease of [place] coronary artery without angina pectoris (7) S/P percutaneous endoscopic gastrostomy (PEG) tube placement: Status: Acute Category: Surgical Code(s): Z93.1 - Gastrostomy status Plan 73-year-old male with a history of seizure disorder, [place], atrial fibrillation, CVA with residual left-sided deficits managed on Keppra presenting to the emergency department for evaluation with concern for seizure-like activity at the nursing facility. On arrival workup was unremarkable. repeat troponin was obtained at 3 hours which demonstrated elevation to 0.33. Repeat EKG was obtained that did demonstrate some acute dynamic changes, however does not meet STEMI criteria. Cardiology was requested admission. Discussed with the ER. Plan as follow: -Altered mental status likely secondary to breakthrough seizure: Admit to medical service 2000 mg Keppra was IV given Dose updated to 1000mg twice daily Seizure precaution Aspiration precaution Monitor for vital sign. Repeat lab -Elevated troponin: Likely due to oxygen demand. Continue cardiac monitoring Serial troponin Cardiology consult Monitor for chest pain or rhythm change -History of CAD: On Xarelto, resume home medication -CVA: Left-sided residual. On gastric tube. On Pepcid PT OT consult Hypertension Metoprolol valsartan On Xarelto Full code
--- NOTE | 2024-01-14 22:32 | PC.NURSE ---
Updated family on admission to [facility], consult with Dr De La Paz
--- NOTE | 2024-01-14 22:36 | PC.NURSE ---
[employer] NOTIFIED OF NEED FOR BED
--- NOTE | 2024-01-14 23:00 | PC.NURSE ---
2300 RECEIVED REPORT FROM FELA RN/ED NURSE. PATIENT IS A 73 YO MALR FROM [facility]. SENT TO THE ED FOR SEIZURE ACTIVITT,. TROPONINS ELEVATED.L DR TEJADA TO SEE IN THE AM.
--- NOTE | 2024-01-14 23:14 | PC.NURSE ---
called med/surg to inquire re: transfer to floor. spoke with fish and game warden. states she will alert techs on floor again. extension supervisor aware.
[2024-01-14 23:42] LABS: Reflex Lactic Add Lactic Reflex
--- NOTE | 2024-01-14 23:47 | PC.NURSE ---
danish christian returned call from [facility]
[2024-01-15] VITALS (26 sets, daily range): BP systolic 95–125; BP diastolic 49–80; PULSE 60–80; RESP 14–20; TEMP 36.5–36.9; O2SAT 87–99; BMI 19.5; BMI 19.4
--- NOTE | 2024-01-15 | IR_ITS ---
APPROVED REPORT Patient Location: Inpatient Outdoor Studies Director: NJ Greene RT (R) PROCEDURES Selective coronary angiogram INDICATION Non-ST elevation myocardial infarction, Known coronary artery disease Informed consent was obtained prior to the procedure. COMPLICATIONS None Estimated Blood Loss: Less than 10 ml TECHNIQUE One percent lidocaine used to anesthetize the right anterior aspect of the wrist. The right radial artery was accessed via the Seldinger technique. A 6 Greek sheath was placed in the right radial artery. 2.5 mg of Verapamil, 800 mcg of nitroglycerin, 1mg Lidocaine and 5000 U Heparin were given through the arterial sheath. The papa catheter was also used to perform selective coronary angiogram. At the end of the procedure the sheath was removed good hemostasis was achieved using Traclet band, patient was transferred to the postop holding area in stable condition. 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 Patient should be kept in over the weekend and medically managed with plans to perform cardiac resynchronization therapy/addition of coronary sinus pacemaker lead placement on Thursday 2. Standard therapy for ischemic heart disease 3. Standard therapy for systolic heart failure Electronically signed by : Randall De La Paz MD 01/15/2024 15:18:04
--- NOTE | 2024-01-15 00:11 | PC.NURSE ---
report called to Iris WATTERS #[id number]
[2024-01-15 00:14] LABS: Lactic Acid Follow Up (RFLX 1) 2.5 mmol/L (0.7-2.1)
--- NOTE | 2024-01-15 00:18 | PC.NURSE ---
pt being transferred to floor at this time
[2024-01-15 00:49] LABS: Ammonia 12 umol/L (9-30)
[2024-01-15 02:00] LABS: Reflex Lactic (2 hrs) Add Lactic Reflex
--- NOTE | 2024-01-15 02:09 | PC.NURSE ---
spoke with kellen costa at [facility] re: patient admit.
[2024-01-15 02:35] LABS: Lactic Acid Follow up (RFLX 2) 1.5 mmol/L (0.7-2.1)
[2024-01-15] MEDS: 0.9 % SODIUM CHLORIDE 1000ML 1,000 ML 50 ML IV (02:57)
[2024-01-15 06:54] LABS: Basophils % 0.5 % (0.1-2.0); Eosinophils # 0.1 K/mm3 (0.0-0.4); Eosinophils % 1.6 % (0.1-12.0); Hematocrit 42.7 % (42.0-52.0); Hemoglobin 13.9 g/dL (14.1-18.0); Lymphocytes # 2.2 K/mm3 (0.7-4.5); Lymphocytes % 31.8 % (10-50); Mean Corpuscular HGB Conc 32.5 g/dL (31.8-35.4); Mean Corpuscular Hemoglobin 32.5 pg (27.0-31.2); Mean Corpuscular Volume 99.9 fl (80-94); Mean Platelet Volume 9.1 fl (7.4-10.4); Monocytes # 0.4 K/mm3 (0.1-1.0); Neutrophils # 4.2 K/mm3 (1.8-7.8); Platelet Count 185 K/mm3 (142-424); Red Blood Count 4.27 M/mm3 (4.60-6.20); Red Cell Distribution Width 13.7 % (11.5-17.5); White Blood Count 6.9 K/mm3 (4.8-10.8)
[2024-01-15 06:57] LABS: Alanine Aminotransferase 21 U/L (12-78); Albumin Level 3.7 g/dl (3.5-5.0); Albumin/Globulin Ratio 1.4 (1.1-1.8); Alkaline Phosphatase 75 U/L (38-126); Anion Gap 8.7 mEq/L (5-15); Aspartate Amino Transferase 26 U/L (17-59); Bilirubin,Total 0.5 mg/dl (0.2-1.3); Blood Urea Nitrogen 15 mg/dl (9-20); Calcium 9.1 mg/dl (8.4-10.2); Carbon Dioxide 31 mmol/L (22.0-30.0); Chloride 102 mmol/L (98-107); Creatinine Clearance Estimated 68 mL/min (50-200); Estimated Glomerular Filt Rate 163 ml/min (>60); GFR (African American) 197 ML/MIN (>60); Globulin 2.6 g/dL (1.3-3.2); Glucose 89 mg/dl (74-100); Magnesium 2.1 mg/dl (1.6-2.3); Potassium 3.7 mmoL/L (3.5-5.1); Sodium 138 mmol/L (136-145); Total Protein,Serum 6.3 g/dl (6.3-8.2)
--- NOTE | 2024-01-15 07:54 | CA_ITS ---
APPROVED REPORT EXAM: Comprehensive 2D, Doppler, and color-flow Echocardiogram Test Borer Helper: Orin Diaz RVT Ht: 6 ft 3 in Wt: 160lbs BSA: 2.00 BP: 112/73 mmHg Indications: ELEVATED TROP,CAD,HX CVA,SEIZURES,EX SMOKER,HTN,CP,G TUBE VERY TDS-LIMITED WINDOWS Echo Enhancing Agent Indication: Endocardial border delineation Agent(s) / Amount(s) Used: Definity 2 cc 2D Dimensions LA Volume 44.40 mL LA Volume Index 22.771818 mL/m2 (M/F) 16-34 M-Mode Dimensions RVDd 2.65 cm (0.9-2.6) LA Diam 3.34 cm (1.9-4.0) LVDd 5.73 cm (3.5-5.7) LVDs 5.15 cm (3.5-5.7) IVSd 0.74 cm (0.6-1.1) PWd 0.64 cm (0.6-1.1) EF (Teich) 21.90% EPSs 2.80 cm FS 10.10% EDV (Teich) 162.00 mL ESV (Teich) 126.60 mL LV Diastology E Decel Time 237 (160-240 msec) E/A Ratio 0.5 Aortic Valve ALTHEA Index 1.45 cm2/m2 AoV Peak Joaquin. 151.0 (50-130 cm/s) AO Peak GR. 9.10 mmHg AO Mean GR. 4.60 (<5 mmHg) AO VTI 26.8 (18-25 cm) ALTHEA (VTI) 2.96 (2.5-4.5 cm2) Mitral Valve MV E Max Joaquin. 35.0 (40-130 cm/s) MV A Velocity 75.0 (40-130 cm/s) E/A Ratio 0.47 MV PHT 69.0 ms Pulmonary Valve PV Peak Velocity 121.0 (50-150 cm/s) Left Ventricle The left ventricle is normal size. The left ventricular systolic function is moderately to severely severely reduced. Proximal septal thickening is noted. There is akinesis of the mid to distal LV montero and the LV apex. Grade 1 diastolic dysfunction is present. No left ventricle thrombus noted on this study. LVEF is 30%. Right Ventricle The right ventricle is normal size. The right ventricular systolic function is normal. There is a device lead in the right ventricle. Atria The left atrium size is normal. The right atrium size is normal. There is no Doppler evidence of interatrial shunt. Aortic Valve The aortic valve is mildly thickened. There is no aortic valvular stenosis. Trace aortic regurgitation. Mitral Valve Mild mitral annular calcification. The mitral valve leaflets are mildly thickened. No evidence of mitral valve stenosis. Mild mitral regurgitation. Tricuspid Valve The tricuspid valve leaflets are not well-visualized. Trace tricuspid regurgitation. There is insufficient TR jet to estimate RVSP. Pulmonic Valve The pulmonic valve is not well-visualized. Great Vessels The aortic root is not well-visualized. The ascending aorta is not well-visualized. IVC is normal in size and collapses >50% with inspiration. Pericardium There is no pericardial effusion. Other Information Study Quality: Fair Conclusion Moderate to severe reduction in LV systolic function (LVEF 30%). There is akinesis of the mid to distal LV montero and the LV apex. Significant valvular stenosis or regurgitation. In the setting of LV dysfunction and wall motion abnormalities, ischemia workup is recommended, if clinically indicated. If no evidence of ischemic CAD, then stress cardiomyopathy may be considered. No prior studies available for chronicity or comparison. Electronically signed by : Sara Oconnor MD 01/15/2024 12:31:50
--- NOTE | 2024-01-15 08:15 | SW/DCPLANNER ---
Addendum entered by Ashley Sanders 01/20/24 07:36: Patient returned to [facility] level of care. Addendum entered by Ashley Sanders 01/19/24 10:32: I have updated Ilana w/ [facility] that patient will return today. Ilana will review information and see if patient qualifies to return SNF. Addendum entered by Ashley Sanders 01/18/24 15:21: I spoke w/ patient's regarding plans at time of discharge. would like for patient to return to [facility] and would like for us to see if he able to be skilled. I will follow up w/ Ilana at [facility]. Patient may discharge back tomorrow. Addendum entered by Ashley Sanders 01/18/24 08:08: Updated patient information has been faxed to Ilana w/ [facility]. Original Note: This patient currently resides at [facility] level of care. I will continue to follow up w/ Ilana at [facility] until patient is medically stable for discharge. Discharge date is unknown at this time.
[2024-01-15 08:50] LABS: Troponin I 0.36 ng/ml (0.00-0.034)
--- NOTE | 2024-01-15 08:57 | HMH.OTEV ---
OT Inpatient Evaluation Rehab OT IP Evaluation Start: 01/15/24 04:27 Freq: ONCE Status: Active Protocol: Document 01/15/24 08:52 TOMASGHULAM (Rec: 01/15/24 08:57 LA NENAMARII [id number]) Rehab OT IP Assessment Subjective History This is a 73-year-old male with a history of seizure disorder, [place], atrial fibrillation, CVA with residual left-sided deficits managed on Keppra presenting to the emergency department for evaluation with concern for seizure-like activity at the nursing facility. According nursing facility report, the patient has had seizure-like activity today. EMS noted that he did have a brief 22nd seizure en route, which resolved spontaneously with no abortive medications administered. Otherwise, he remained stable en route, but confused. He was able to talk to them. Per nursing facility, his baseline is alert but pleasantly confused. No other acute concerns noted at this time. admitted for further work up. Patient is a resident at a local [facility] [place]. Patient uses a w/c to maneuver within facility and staffing uses a renetta for transfers. Patient is able to complete self feeding with SUP after proper set-up. Max A to TD for remaining ADLs and transfers. Subjective I can try to sit up. Instructed patient on proper hand and foot placement to complete bed mobility from supine->sit @ EOB requiring Max A x2. patient required max A to sit @ EOB due to unsteady balance. Patient requested to lay back in bed with needing Max A x2 support. Left patient upright in bed with needs met at end of session. Objective Patient Orientation Person,Name,Age,Birthday Right Upper Extremity Gross ROM WFL Left Upper Extremity Gross ROM WFL Bed Mobility bed mobility - supine/sit Assist Level Maximum x 2 (75% assist) Rehab OT IP prob,goals,plan Problems Date of Evaluation: 01/15/24 Rehab Potential Rehab Potential Innapropriate for Skilled Therapy Discharge Plan OT Discharge Plan Patient appears to be at baseline with bed mobility, transfers and ADLs. IP OT therapy services are not needed at this time. Recommend patient to return home SNF after medical d/c. Eval Complexity Eval Charge Codes 79326 - Low Complexity PHYSICIAN CERTIFICATION: I certify the specified therapy services for Madhav Smith are required, authorized, and reviewed every 30 days.
[2024-01-15 09:31] LABS: Creatine Kinase 59 U/L (55-170)
[2024-01-15] MEDS: ONDANSETRON 4MG/2ML VIAL 4 MG IV (09:31)
[2024-01-15] MEDS: DEFINITY US ECHO CONTRAST 2ML INJ 2 MG IV (09:33)
[2024-01-15] MEDS: FAMOTIDINE 20MG TABLET 40 MG PO (09:34)
[2024-01-15] MEDS: METOPROLOL SUCCINATE XL 25MG TABLET 25 MG PO (09:34)
[2024-01-15] MEDS: FUROSEMIDE 20MG TABLET 20 MG PO (09:34)
[2024-01-15] MEDS: SERTRALINE 50MG TABLET 50 MG PO (09:34)
[2024-01-15] MEDS: levETIRAcetam 1,000 MG in 0.9 % SODIUM CHLORIDE 100 ML 220 MG IV ×2 (09:34→20:48)
[2024-01-15] MEDS: PANTOPRAZOLE 40MG TABLET 40 MG PO (09:34)
[2024-01-15] MEDS: FINASTERIDE 5MG TABLET 5 MG PO (09:35)
[2024-01-15] MEDS: FLUTICASONE PROP 50MCG NASAL SPRAY 16GM 1 SPRAY NS (09:35)
[2024-01-15] MEDS: IRBESARTAN 75MG TABLET 18.75 MG PO (09:37)
[2024-01-15] MEDS: IPRATROPIUM/ALBUTEROL 3 ML NEB IH ×2 (10:05→19:05)
--- NOTE | 2024-01-15 10:38 | P.CONCA_ITS ---
History of Present Illness History of Present Illness Consult date: 01/15/24 Requesting physician: Michelle Leonard Consult reason: chest pain Chief complaint: Seizure, NSTEMI Additional Medical History:: 1. Coronary artery disease A. History of coronary stenting approximately 11 years ago, records unavailable 2. HFrEF/ischemic cardiomyopathy A. Medtronic AICD, implanted February 17, 2022 3. History of CVA x 2 with left-sided paresis A. PEG-tube in place B. History of seizure activity, managed on Keppra 4. History of tobacco use 5. History of alcohol use 6. History of atrial fibrillation for which she is on Xarelto therapy History of present illness: This is a 73-year-old male with a history of seizure disorder, [place], atrial fibrillation, CVA with residual left-sided deficits managed on Keppra presenting to the emergency department for evaluation with concern for seizure-like activity at the nursing facility. According nursing facility report, the patient has had seizure-like activity today. EMS noted that he did have a brief nd seizure en route, which resolved spontaneously with no abortive medications administered. Otherwise, he remained stable en route, but confused. He was able to talk to them. Per nursing facility, his baseline is alert but pleasantly confused. No other acute concerns noted at this time. admitted for further work up. The above per Umer Awan APRN for hospitalist service Events as noted above discussed with the patient and his . Patient is able to answer questions but gives the majority of the information. No recent stress testing or cardiac catheterization. He does follow with a audiovisual tech in [place] but has not seen him in a year due to the rehab and extended stay in the fpc Patient does relate some right shoulder discomfort that mildly improves with adjustment in bed. BNP noted to be elevated at 736 Peak troponin 0.70 now declining EKG shows sinus rhythm at 89 bpm with IVCD and a right bundle branch pattern Medtronic Evera MRI XT interrogated today with no arrhythmias noted. 9 years of battery life left. A paced 0.2% V paced less than 0.1% [facility] Disclaimer: The information contained in this section may have been updated after the patient was seen, as this information can be updated by other users. Medical History (Updated 01/15/24 @ 12:12 by RODNEY De Jesus) Heart attack Stroke Family History (Updated 01/15/24 @ 00:58 by Iris Jo RN) Family history of cancer Family history of diabetes mellitus Social History (Updated 01/15/24 @ 00:52 by Iris Jo RN) Smoking Status: Former smoker alcohol intake: never current occupational status: retired Travel in the last 8 weeks: None Review of Systems Review of Systems Review of systems:: pertinent systems reviewed and negative unless documented below Constitutional Constitutional: Reports system reviewed and no additional complaints, except as documented *Cardiovascular Cardiovascular: Denies chest pain and Reports dyspnea on exertion *Respiratory Respiratory: Denies cough and Reports dyspnea on exertion Exam Data for Last 24 hours Vital signs and Labs for Last 24 Hours: Temp Pulse Resp BP Pulse Ox O2 Del Method 97.7 F 64 18 102/69 L 87 L Room Air 01/15/24 08:00 01/15/24 09:23 01/15/24 08:00 01/15/24 08:00 01/15/24 08:00 01/15/24 09:00 Laboratory Results - last 24 hr 01/14/24 18:06: VBG pH 7.34, VBG pCO2 49.2, VBG pO2 98.3 H, VBG HCO3 26.1, VBG Total CO2 27.6 H, VBG O2 Saturation 97.3 H, VBG Base Excess 0.3 01/14/24 18:59: WBC 7.9, RBC 4.51 L, Hgb 14.7, Hct 44.4, MCV 98.4 H, MCH 32.6 H, MCHC 33.1, RDW 13.7, Plt Count 195, MPV 9.3, Neut % (Auto) 75.0, Lymph % (Auto) 17.4, [place] % (Auto) 5.5, Eos % (Auto) 1.4, Baso % (Auto) 0.7, Neut # (Auto) 5.9, Lymph # (Auto) 1.4, [place] # (Auto) 0.4, Eos # (Auto) 0.1, Baso # (Auto) 0.1, PT 11.9, INR 1.11 H, APTT 27.5, Sodium 137, Potassium 3.7, Chloride 101, Carbon Dioxide 27, Anion Gap 12.7, BUN 18, Creatinine 0.60 L, Estimated Creat Clear 68, Estimated GFR 132, Est GFR ( Amer) 160, Glucose 105 H, Calcium 9.2, Total Bilirubin 0.3, AST 30, ALT 31, Alkaline Phosphatase 69, Troponin I 0.10 H, NT-Pro-B Natriuret Pep 736 H, Total Protein 6.8, Albumin 4.0, Globulin 2.8, Albumin/Globulin Ratio 1.4, Lipase 48 01/14/24 19:22: VBG Lactic Acid 5.0 H 01/14/24 21:00: Urine Color Yellow, Urine Appearance Clear, Urine pH 7.5, Ur Specific [place] 1.010, Urine Protein Trace, Urine Glucose (UA) Negative, Urine Ketones Negative, Urine Blood Negative, Urine Nitrate Negative, Urine Bilirubin Negative, Urine Urobilinogen 0.2, Ur Leukocyte Esterase Negative, Urine RBC None, Urine WBC None, Ur Squamous Epith Cells Occasional, Urine Bacteria None 01/14/24 21:25: Troponin I 0.33 H 01/14/24 23:55: Lactate 2.5 H 01/15/24 00:00: Troponin I 0.70 H 01/15/24 00:31: Ammonia 12 01/15/24 02:17: Lactate 1.5 01/15/24 05:27: Total Creatine Kinase 59 01/15/24 05:37: WBC 6.9, RBC 4.27 L, Hgb 13.9 L, Hct 42.7, MCV 99.9 H, MCH 32.5 H, MCHC 32.5, RDW 13.7, Plt Count 185, MPV 9.1, Neut % (Auto) 60.0, Lymph % (Auto) 31.8, [place] % (Auto) 6.0, Eos % (Auto) 1.6, Baso % (Auto) 0.5, Neut # (Auto) 4.2, Lymph # (Auto) 2.2, [place] # (Auto) 0.4, Eos # (Auto) 0.1, Baso # (Auto) 0.0, Sodium 138, Potassium 3.7, Chloride 102, Carbon Dioxide 31 H, Anion Gap 8.7, BUN 15, Creatinine 0.50 L, Estimated Creat Clear 68, Estimated GFR 163, Est GFR ( Amer) 197 D, Glucose 89, Calcium 9.1, Magnesium 2.1, Total Bilirubin 0.5, AST 26, ALT 21 D, Alkaline Phosphatase 75, Troponin I 0.36 H, Total Protein 6.3, Albumin 3.7, Globulin 2.6, Albumin/Globulin Ratio 1.4 I & O for Last 24 hours: Intake & Output 01/12/24 01/13/24 01/14/24 01/15/24 11:59 11:59 11:59 11:59 Output Total 650 / 650 Balance -650 / -650 Weight 160 lb 0.008 oz Constitutional Constitutional: no acute distress *Routine Respiratory Exam Respiratory: Present diminished air movement *Routine Cardiovascular Exam Cardiovascular: Present RRR *Routine Extremities Exam Comments: Left-sided hemiparesis *Routine Neurological Exam Neurological: Present alert and oriented X3 Comments: Answers questions appropriately Meds Home Medications and Allergies Home Medications Medication Instructions Recorded Confirmed Type atorvastatin 80 mg tablet 80 mg PO HS Cholesterol 01/14/24 01/15/24 History famotidine 40 mg tablet 40 mg PO HS Acid Reflux 01/14/24 01/15/24 History finasteride 5 mg tablet 5 mg PO HS Prostate 01/14/24 01/15/24 History fluticasone propionate 50 1 spray intranasal DAILY allergies 01/14/24 01/14/24 History mcg/actuation nasal spray,suspension furosemide 20 mg tablet 20 mg PO DAILY Fluid 01/14/24 01/15/24 History ipratropium 0.5 mg-albuterol 3 mg 3 ml inhalation Q6HP PRN Shortness 01/14/24 01/15/24 History (2.5 mg base)/3 mL nebulization Of Breath soln levetiracetam 750 mg tablet 750 mg PO BID Seizures 01/14/24 01/15/24 History metoprolol succinate 25 mg 25 mg PO DAILY High Blood Pressure 01/14/24 01/15/24 History tablet,extended release 24 hr ondansetron 4 mg disintegrating 4 mg PO Q4HP PRN Nausea 01/14/24 01/15/24 History tablet rivaroxaban 20 mg tablet (Xarelto) 20 mg PO QPMWITHMEAL Blood 01/14/24 01/15/24 History thinner/CVA sertraline 50 mg tablet 50 mg PO HS Depression 01/14/24 01/15/24 History valsartan 40 mg tablet 20 mg PO DAILY High Blood Pressure 01/14/24 01/15/24 History polyethylene glycol 3350 17 gram 17 g PO DAILY Constipation 01/15/24 01/15/24 History oral powder packet (Miralax) New Prescriptions to Start Prescriptions: Allergies Allergy/AdvReac Type Severity Reaction Status Date / Time No Known Allergies Allergy Verified 01/14/24 18:14 Assessment and Plan *Assessment and plan (1) Breakthrough seizure: Status: Acute Category: Medical Code(s): G40.919 - Epilepsy, unspecified, intractable, without status epilepticus (2) Altered mental status: Status: Acute Qualifiers: Altered mental status type: transient alteration of awareness Qualified Code(s): R40.4 - Transient alteration of awareness Category: Medical Code(s): R41.82 - Altered mental status, unspecified (3) Non-STEMI (non-ST elevated myocardial infarction): Status: Acute Category: Medical Code(s): I21.4 - Non-ST elevation (NSTEMI) myocardial infarction (4) CAD (coronary artery disease): Status: Acute Qualifiers: Associated angina: unspecified whether angina present Coronary Disease- Associated Artery/Lesion type: [place] artery [place] vs. transplanted heart: [place] heart Qualified Code(s): I25.10 - Atherosclerotic heart disease of [place] coronary artery without angina pectoris Category: Medical Code(s): I25.10 - Atherosclerotic heart disease of [place] coronary artery without angina pectoris (5) HTN (hypertension): Status: Acute Qualifiers: Hypertension type: unspecified Qualified Code(s): I10 - Essential (primary) hypertension Category: Medical Code(s): I10 - Essential (primary) hypertension (6) Stroke: Problem Comment: old Status: Acute Qualifiers: CVA mechanism: unspecified Qualified Code(s): I63.9 - Cerebral infarction, unspecified Category: Medical Code(s): I63.9 - Cerebral infarction, unspecified (7) S/P percutaneous endoscopic gastrostomy (PEG) tube placement: Status: Acute Category: Surgical Code(s): Z93.1 - Gastrostomy status (8) Automatic implantable cardioverter-defibrillator in situ: Status: Acute Category: Medical Code(s): Z95.810 - Presence of automatic (implantable) cardiac defibrillator (9) Paroxysmal atrial fibrillation: Status: Acute Category: Medical Code(s): I48.0 - Paroxysmal atrial fibrillation Plan 1. Breakthrough seizure -On Keppra -Defer to hospitalist 2. Non-STEMI -Continue metoprolol and valsartan -Discussed with patient and regarding recommendation for left heart catheterization. They agree to proceed 3. HFrEF -Continue Lasix -Known EF of around 25 to 30% -Chest x-ray shows prominence of central pulmonary vasculature with small perihilar consolidation difficult to exclude 4. AICD in situ -Interrogation shows no evidence of arrhythmias 5. History of atrial fibrillation -On chronic anticoagulation with Xarelto -TSH recently normal at 2.2 on 12/07/2023 6. History of stroke with left-sided hemiparesis -PEG tube in place -CTA of head and neck showed no acute process. Old infarct in the right cerebral area noted. 7. Hypertension, controlled -Echocardiogram reading pending Left heart catheterization today with further recommendations to follow Echo today showed moderate to severe reduction in LV systolic function at 30% with akinesis of the mid to distal LV montero in the LV apex. No significant valvular disease noted. Left heart cath today showed widely patent coronary arteries. In light of patient's wide-complex QRS and ischemic cardiomyopathy, he is a candidate for an upgrade of his defibrillator to a [employer]IST[employer]-D. Would recommend keeping the patient over the weekend and making adjustments to his medication while holding his Xarelto and plan for ASSIST[employer]PER[employer] MANAGER-D implantation/upgrade on Thursday. Patient and agree to this plan.
--- NOTE | 2024-01-15 11:27 | P.CONPHA_ITS ---
Pharmacy Intervention Comments: MEDICATION RECONCILIATION COMPLETED ON PATIENT UINSG JAN FROM [facility]. -CECIL CRISTINA, JRD
--- NOTE | 2024-01-15 11:27 | HMH.PHAINT1 ---
Pharmacy Intervention Comments: MEDICATION RECONCILIATION COMPLETED ON PATIENT UINSG JAN FROM [facility]. -CECIL CRISTINA, JRD
--- NOTE | 2024-01-15 11:31 | DIET.NUTRFU ---
Consulted to start TF, Spoke to patient and about TF and PMH. He lives at [facility], had PEG place in May secondary to stoke with dysphasia. Currently tolerating comfort foods, soft. For lunch ordered cottage cheese/applesauce/jello with apple juice. Only normally eats a few bites, never hungry. He had been losing weight at [place] on bolus feedings. He does have a hx of CHF with diuretic tx, showed this RD his left arm/L foot both with slight edema. CBW is 72kg (158#). Daily weights are recorded at hospital and he ranges from 156-161# typically. Based on dry weights his needs are 2200-2400kcal and 93-102gm protein and 1500-1700ml/day. Currently on Nutren 2.0 60ml/hr at , calculating by 22hr to provide time for changes and ADL care he is receiving 1320ml/2640kcal/104gm protein and 927.96ml formula water+600ml cnsuy=8339.6ml/day. Once IVF fluid is discontinued will re-eval. for flush based on labs. Based on PMH and current dependence on TF he does trigger for severe PCM, physician was notified. He was noted to be admitted with N/V, resolved denied any today. also reports he has regular loose BM QD-QOD. Will monitor TF tolerance.
--- NOTE | 2024-01-15 12:53 | HMH.PTEV ---
Physical Therapy Evaluation Rehab PT IP Evaluation Start: 01/15/24 04:27 Freq: ONCE Status: Active Protocol: Document 01/15/24 10:33 JARED (Rec: 01/15/24 12:53 JARED [email or web address]) Subjective/History History History Per H&P: This is a 73-year-old male with a history of seizure disorder, [place], atrial fibrillation, CVA with residual left-sided deficits managed on Keppra presenting to the emergency department for evaluation with concern for seizure-like activity at the nursing facility. According nursing facility report, the patient has had seizure-like activity today. EMS noted that he did have a brief 22nd seizure en route, which resolved spontaneously with no abortive medications administered. Otherwise, he remained stable en route, but confused. He was able to talk to them. Per nursing facility, his baseline is alert but pleasantly confused. No other acute concerns noted at this time. admitted for further work up. Subjective Subjective Nursing in room upon arrival. Pt currently lethargic and nauseous. able to answer subjective questions. Per : Prior to admission, pt living at [facility]. Pt using renetta lift for transfers, w/c for in-facility mobility, Max-Dep for bed mobility. Pt had a stroke last May and has no movement in his left side. New diagnosis of cancer in past 12 No months? Rehab PT IP Eval Objective Appearance Patient Behavior Appropriate,Cooperative Ambulation Patient Able to Ambulate No Transfers Bed Transfer Ability Maximum x 2 (75% assist) Rehab PT IP prob,goals,plan Problems Date of Evaluation: 01/15/24 PT IP Problems Bed Mobility,Transfers,Balance ,Safety Rehab Potential Rehab Potential Fair Equipment Needs Assistive Devices Wheelchair Plan PT Intervention Plan Bed Mobility,Transfers,Balance ,Self care Other Intervention Plan 1-2 times PT Plan Frequency Daily Duration LOS Discharge Goals Bed Transfer Ability Maximum x 1 (75% assist) Sit to Stand Chair Transfer Ability Total/Dependent (100%) Discharge Plan PT Discharge Plan Pt with global L sided weakness. PT unable to fully assess functional mobility at this time d/t pt's lethargic and nauseous state. with request for pt to rest. Pt is Max A x 2 to sit at EOB. Pt is renetta lift transfer level. PT recommending pt d/c to previous living location/ skilled nursing when deemed medically stable. Pt would benefit from skilled acute care PT to prevent further mobility decline, prevent adverse effects of immobility, provide education as needed, and prevent pressure wounds. Eval Complexity Eval Charge Codes 55637 - High Complexity PHYSICIAN CERTIFICATION: I certify the specified therapy services for Madhav Smith are required, authorized, and reviewed every 30 days.
[2024-01-15] MEDS: NITROGLYCERIN 800MCG/8ML SYR (CATH LAB) 800 MCG IA (15:08)
[2024-01-15] MEDS: HEPARIN 1,000 UNITS/500ML NS (CATH LAB) 3000 UNIT IV (15:08)
[2024-01-15] MEDS: 0.9 % SODIUM CHLORIDE 500 ML 25 ML IV (15:08)
[2024-01-15] MEDS: VERAPAMIL 2.5MG/ML 2ML VIAL 2.5 MG IV (15:08)
[2024-01-15] MEDS: diphenhydrAMINE 50MG/ML VIAL 50 MG IV (15:08)
[2024-01-15] MEDS: LIDOCAINE 1% 10ML MDV 20 ML IJ (15:08)
[2024-01-15] MEDS: HEPARIN 1,000 UNITS/ML 10ML VIAL (CATH LAB) 10000 UNIT IV (15:08)
[2024-01-15] MEDS: FENTANYL 100MCG/2ML VIAL 50 MCG IV (15:15)
[2024-01-15] MEDS: MIDAZOLAM HCL 1MG/1ML 5ML VIAL 1 MG IV (15:15)
[2024-01-15] MEDS: IOPAMIDOL-370 (76%);100ML BOTTLE 60 ML IV (15:53)
--- NOTE | 2024-01-15 17:21 | P.PN_ITS ---
Subjective *Date: 01/15/24 *Time: 17:21 Interval history: alert awake seen at bedside, at bedside, denied any active CP, SOB. Per has history of seizures Exam Data for Last 24 hours Vital signs and Labs for Last 24 Hours: Temp Pulse Resp BP Pulse Ox O2 Del Method O2 Flow Rate 97.7 F 61 16 114/52 L 95 Nasal Cannula 2 01/15/24 15:50 01/15/24 17:05 01/15/24 17:05 01/15/24 17:05 01/15/24 17:05 01/15/24 17:01/15/24 17:05 Laboratory Results - last 24 hr 01/14/24 18:06: VBG pH 7.34, VBG pCO2 49.2, VBG pO2 98.3 H, VBG HCO3 26.1, VBG Total CO2 27.6 H, VBG O2 Saturation 97.3 H, VBG Base Excess 0.3 01/14/24 18:59: WBC 7.9, RBC 4.51 L, Hgb 14.7, Hct 44.4, MCV 98.4 H, MCH 32.6 H, MCHC 33.1, RDW 13.7, Plt Count 195, MPV 9.3, Neut % (Auto) 75.0, Lymph % (Auto) 17.4, [place] % (Auto) 5.5, Eos % (Auto) 1.4, Baso % (Auto) 0.7, Neut # (Auto) 5.9, Lymph # (Auto) 1.4, [place] # (Auto) 0.4, Eos # (Auto) 0.1, Baso # (Auto) 0.1, PT 11.9, INR 1.11 H, APTT 27.5, Sodium 137, Potassium 3.7, Chloride 101, Carbon Dioxide 27, Anion Gap 12.7, BUN 18, Creatinine 0.60 L, Estimated Creat Clear 68, Estimated GFR 132, Est GFR ( Amer) 160, Glucose 105 H, Calcium 9.2, Total Bilirubin 0.3, AST 30, ALT 31, Alkaline Phosphatase 69, Troponin I 0.10 H, N T-Pro-B Natriuret Pep 736 H, Total Protein 6.8, Albumin 4.0, Globulin 2.8, Albumin/Globulin Ratio 1.4, Lipase 48 01/14/24 19:22: VBG Lactic Acid 5.0 H 01/14/24 21:00: Urine Color Yellow, Urine Appearance Clear, Urine pH 7.5, Ur Specific [place] 1.010, Urine Protein Trace, Urine Glucose (UA) Negative, Urine Ketones Negative, Urine Blood Negative, Urine Nitrate Negative, Urine Bilirubin Negative, Urine Urobilinogen 0.2, Ur Leukocyte Esterase Negative, Urine RBC None, Urine WBC None, Ur Squamous Epith Cells Occasional, Urine Bacteria None 01/14/24 21:25: Troponin I 0.33 H 01/14/24 23:55: Lactate 2.5 H 01/15/24 00:00: Troponin I 0.70 H 01/15/24 00:31: Ammonia 12 01/15/24 02:17: Lactate 1.5 01/15/24 05:27: Total Creatine Kinase 59 01/15/24 05:37: WBC 6.9, RBC 4.27 L, Hgb 13.9 L, Hct 42.7, MCV 99.9 H, MCH 32.5 H, MCHC 32.5, RDW 13.7, Plt Count 185, MPV 9.1, Neut % (Auto) 60.0, Lymph % (Auto) 31.8, [place] % (Auto) 6.0, Eos % (Auto) 1.6, Baso % (Auto) 0.5, Neut # (Auto) 4.2, Lymph # (Auto) 2.2, [place] # (Auto) 0.4, Eos # (Auto) 0.1, Baso # (Auto) 0.0, Sodium 138, Potassium 3.7, Chloride 102, Carbon Dioxide 31 H, Anion Gap 8.7, BUN 15, Creatinine 0.50 L, Estimated Creat Clear 68, Estimated GFR 163, Est GFR ( Amer) 197 D, Glucose 89, Calcium 9.1, Magnesium 2.1, Total Bilirubin 0.5, AST 26, ALT 21 D, Alkaline Phosphatase 75, Troponin I 0.36 H, Total Protein 6.3, Albumin 3.7, Globulin 2.6, Albumin/Globulin Ratio 1.4 I & O for Last 24 hours: Intake & Output 01/12/24 01/13/24 01/14/24 01/15/24 23:59 23:59 23:59 23:59 Intake Total 611 / 611 Output Total 950 / 950 Balance -339 / -339 Weight 72.575 kg 72.5 kg Constitutional Constitutional: no acute distress *Routine HEENT Exam Head: Present normocephalic Eye: Present EOMI and PERRL ENT: Present mucous membranes moist *Routine Neck Exam Neck: Present supple; Absent lymphadenopathy *Routine Respiratory Exam Respiratory: Present CTA bilaterally *Routine Cardiovascular Exam Cardiovascular: Present RRR *Routine Abdominal Exam Abdominal: Present soft and normoactive bowel sounds; Absent tenderness *Routine Extremities Exam Extremities: Absent cyanosis, clubbing or edema *Routine Skin Exam Skin: Present warm; Absent rash *Routine Neurological Exam Neurological: Present alert and oriented X3 Assessment and Plan *Assessment and plan (1) Breakthrough seizure: Status: Acute Category: Medical Code(s): G40.919 - Epilepsy, unspecified, intractable, without status epilepticus (2) Altered mental status: Status: Acute Qualifiers: Altered mental status type: transient alteration of awareness Qualified Code(s): R40.4 - Transient alteration of awareness Category: Medical Code(s): R41.82 - Altered mental status, unspecified (3) Elevated troponin: Status: Acute Category: Medical Code(s): R79.89 - Other specified abnormal findings of blood chemistry (4) Stroke: Problem Comment: old Status: Acute Qualifiers: CVA mechanism: unspecified Qualified Code(s): I63.9 - Cerebral infarction, unspecified Category: Medical Code(s): I63.9 - Cerebral infarction, unspecified (5) HTN (hypertension): Status: Acute Qualifiers: Hypertension type: unspecified Qualified Code(s): I10 - Essential (primary) hypertension Category: Medical Code(s): I10 - Essential (primary) hypertension (6) CAD (coronary artery disease): Status: Acute Qualifiers: Coronary Disease-Associated Artery/Lesion type: [place] artery [place] vs. transplanted heart: [place] heart Associated angina: unspecified whether angina present Qualified Code(s): I25.10 - Atherosclerotic heart disease of [place] coronary artery without angina pectoris Category: Medical Code(s): I25.10 - Atherosclerotic heart disease of [place] coronary artery without angina pectoris (7) S/P percutaneous endoscopic gastrostomy (PEG) tube placement: Status: Acute Category: Surgical Code(s): Z93.1 - Gastrostomy status Plan 73-year-old male with a history of seizure disorder, [place], atrial fibrillation, CVA with residual left-sided deficits managed on Keppra presenting to the emergency department for evaluation with concern for seizure-like activity at the nursing facility. On arrival workup was unremarkable. repeat troponin was obtained at 3 hours which demonstrated elevation to 0.33. Repeat EKG was obtained that did demonstrate some acute dynamic changes, however does not meet STEMI criteria. Cardiology was requested admission. Discussed with the ER. Plan as follow: -Altered mental status likely secondary to breakthrough seizure: 2000 mg Keppra was IV given Dose updated to 1000mg twice daily check keppra level - ordered Seizure precaution Aspiration precaution -Elevated troponin: Likely due to oxygen demand. Continue cardiac monitoring plan for cardiac cath Serial troponin Cardiology consult Monitor for chest pain or rhythm change -History of CAD: On Xarelto, resume home medication -CVA: Left-sided residual. On gastric tube. On Pepcid PT OT consult Hypertension Metoprolol valsartan On Xarelto Full code
--- NOTE | 2024-01-15 17:56 | PC.NURSE ---
PT IS RESTING IN BED. ALERT AND ORIENTED X3. PT HAS BEEN SLEEPING MOST OF THE SHIFT. TURNED AND REPOSITIONED FREQUENTLY. TUBE FEEDINGS STARTED AT 1730. LUNG SOUNDS CLEAR. LEFT SIDED WEAKNESS NOTED. PT HAS TOLERATED A FEW BITES OF [place]OGURT THIS SHIFT. NO SWELLING NOTED TO BLE. WILL CONTINUE TO MONITOR.
[2024-01-15 20:33] LABS: POC Glucose,Bedside 108 (70-110)
[2024-01-15] MEDS: ATORVASTATIN 40MG TABLET 80 MG PO (20:48)
[2024-01-16] VITALS (11 sets, daily range): BP systolic 94–105; BP diastolic 47–68; PULSE 60–81; RESP 16–19; TEMP 36.6–36.9; O2SAT 90–94; BMI 20.9
[2024-01-16] MEDS: 0.9 % SODIUM CHLORIDE 1000ML 1,000 ML 50 ML IV ×3 (02:09→23:21)
--- NOTE | 2024-01-16 03:03 | PC.NURSE ---
PATIENT IS A/O X 3. PLEASANT AND COOPERATIVE. RECEIVING TUBE FEEDING PER PEG AT 40 ML/HR/PUMP WITH 150 ML WATER FLUSH QID. TOLERATING WELL. ZERO RESIDUAL . FSBS 108. F/C TO BSD, UOP DARK TO LIGHT CARMEN, CLEAR. DRSG TO CARDIAC CATH SITE RIGHT RADIAL C/D/I. NO EVIDENCE OF BLEEDING. NO COMPLAINTS OF SOA,PAIN, OR DISCOMFORT. SIDE RAILS PADDED. NO SEIZURE ACTIVITY NOTED.
[2024-01-16] MEDS: ACETAMINOPHEN 325MG TAB 650 MG PO ×2 (04:19→11:53)
[2024-01-16] MEDS: IPRATROPIUM/ALBUTEROL 3 ML NEB IH ×2 (06:45→10:06)
[2024-01-16] MEDS: FAMOTIDINE 20MG TABLET 40 MG PO (08:28)
[2024-01-16] MEDS: PANTOPRAZOLE 40MG TABLET 40 MG PO (08:29)
[2024-01-16] MEDS: FUROSEMIDE 20MG TABLET 20 MG PO (08:29)
[2024-01-16] MEDS: METOPROLOL SUCCINATE XL 25MG TABLET 25 MG PO (08:29)
[2024-01-16] MEDS: levETIRAcetam 1,000 MG in 0.9 % SODIUM CHLORIDE 100 ML 220 MG IV ×2 (09:00→21:05)
--- NOTE | 2024-01-16 16:47 | P.PN_ITS ---
Subjective *Date: 01/16/24 *Time: 16:47 Interval history: alert awake seen at bedside, at bedside, denied any active CP, SOB. no acute events overnight, he appears sleepy Exam Data for Last 24 hours Vital signs and Labs for Last 24 Hours: Temp Pulse Resp BP Pulse Ox O2 Del Method O2 Flow Rate 98.4 F 63 17 103/58 L 94 L Room Air 92 01/16/24 15:29 01/16/24 15:29 01/16/24 15:29 01/16/24 15:29 01/16/24 15:29 01/16/24 15:29 01/15/24 21:00 Laboratory Results - last 24 hr 01/15/24 20:09: POC Glucose 108 I & O for Last 24 hours: Intake & Output 01/13/24 01/14/24 01/15/24 01/16/24 23:59 23:59 23:59 23:59 Intake Total 611 / 1866 2027 / 2027 Output Total 1000 / 1000 400 / 400 Balance -389 / 866 1628 / 1628 Weight 72.575 kg 72.5 kg 78.018 kg Constitutional Constitutional: no acute distress *Routine HEENT Exam Head: Present normocephalic Eye: Present EOMI and PERRL ENT: Present mucous membranes moist *Routine Neck Exam Neck: Present supple; Absent lymphadenopathy *Routine Respiratory Exam Respiratory: Present CTA bilaterally *Routine Cardiovascular Exam Cardiovascular: Present RRR *Routine Abdominal Exam Abdominal: Present soft and normoactive bowel sounds; Absent tenderness *Routine Extremities Exam Extremities: Absent cyanosis, clubbing or edema *Routine Skin Exam Skin: Present warm; Absent rash *Routine Neurological Exam Neurological: Present alert Assessment and Plan *Assessment and plan (1) Breakthrough seizure: Status: Acute Category: Medical Code(s): G40.919 - Epilepsy, unspecified, intractable, without status epilepticus (2) Altered mental status: Status: Acute Qualifiers: Altered mental status type: transient alteration of awareness Qualified Code(s): R40.4 - Transient alteration of awareness Category: Medical Code(s): R41.82 - Altered mental status, unspecified (3) Elevated troponin: Status: Acute Category: Medical Code(s): R79.89 - Other specified abnormal findings of blood chemistry (4) Stroke: Problem Comment: old Status: Acute Qualifiers: CVA mechanism: unspecified Qualified Code(s): I63.9 - Cerebral infarction, unspecified Category: Medical Code(s): I63.9 - Cerebral infarction, unspecified (5) HTN (hypertension): Status: Acute Qualifiers: Hypertension type: unspecified Qualified Code(s): I10 - Essential (primary) hypertension Category: Medical Code(s): I10 - Essential (primary) hypertension (6) CAD (coronary artery disease): Status: Acute Qualifiers: Coronary Disease-Associated Artery/Lesion type: [place] artery [place] vs. transplanted heart: [place] heart Associated angina: unspecified whether angina present Qualified Code(s): I25.10 - Atherosclerotic heart disease of [place] coronary artery without angina pectoris Category: Medical Code(s): I25.10 - Atherosclerotic heart disease of [place] coronary artery without angina pectoris (7) S/P percutaneous endoscopic gastrostomy (PEG) tube placement: Status: Acute Category: Surgical Code(s): Z93.1 - Gastrostomy status Plan 73-year-old male with a history of seizure disorder, [place], atrial fibrillation, CVA with residual left-sided deficits managed on Keppra presenting to the emergency department for evaluation with concern for seizure-like activity at the nursing facility. On arrival workup was unremarkable. repeat troponin was obtained at 3 hours which demonstrated elevation to 0.33. Repeat EKG was obtained that did demonstrate some acute dynamic changes, however does not meet STEMI criteria. Cardiology was requested admission. Discussed with the ER. Plan as follow: -Altered mental status likely secondary to breakthrough seizure: - improved 2000 mg Keppra was IV given Dose updated to 1000mg twice daily check keppra level - ordered Seizure precaution Aspiration precaution -Elevated troponin: Likely due to oxygen demand. Continue cardiac monitoring plan for cardiac cath - plan for OPERATIONS AND INTELLIGENCE ASSISTANT-D implantation/upgrade on Thursday. Serial troponin Cardiology consult Monitor for chest pain or rhythm change plan for OPERATIONS AND INTELLIGENCE ASSISTANT-D implantation/upgrade on Thursday. -History of CAD: On Xarelto, resume home medication -CVA: Left-sided residual. On gastric tube. On Pepcid PT OT consult Hypertension Metoprolol valsartan On Xarelto Full code plan for OPERATIONS AND INTELLIGENCE ASSISTANT-D implantation/upgrade on Thursday.
--- NOTE | 2024-01-16 17:10 | PC.NURSE ---
PT IS RESTING IN BED. ALERT AND ORIENTED X2. PT HAS BEEN SOMEWHAT CONFUSED ON AND OFF T/O THE SHIFT. WHEN DINNER TRAY WAS TAKEN IN PT STATED HE WAS GOING TO STAND UP TO EAT HIS FOOD HOWEVER PT'S STATED PT HAS NOT BEEN ABLE TO STAND FOR MONTHS. TUBE FEEDINGS AT 60 ML/HR. GASTRIC RESIDUAL CHECKED THIS MORNING AND AFTERNOON. PT HAS TOLERATED SOME JELLO AND A FEW BITES OF MASHED POTATOES. LUNG SOUNDS CLEAR. ABDOMEN SOFT/NON TENDER WITH ACTIVE BOWEL SOUNDS. BATH AND LINEN CHANGE THIS SHIFT. LEFT SIDED WEAKNESS NOTED. WILL CONTINUE TO MONITOR.
[2024-01-16] MEDS: SERTRALINE 50MG TABLET 50 MG PO (21:06)
[2024-01-16] MEDS: FINASTERIDE 5MG TABLET 5 MG PO (21:06)
[2024-01-16] MEDS: ATORVASTATIN 40MG TABLET 80 MG PO (21:06)
[2024-01-17] VITALS (9 sets, daily range): BP systolic 106–132; BP diastolic 62–81; PULSE 64–80; RESP 16–18; TEMP 36.6–36.9; O2SAT 89–94; BMI 21.2
--- NOTE | 2024-01-17 04:38 | PC.NURSE ---
NO RESIDUAL NOTED. TUBE FEED INFUSING AT 60 ML/HR. INCONTINENT 1 LARGE LIQUID STOOL ACCORDING TO CNAS. REMAINS ON SEIZURE PRECAUTIONS, SIDE RAILS UP AND HOB UP 35 DEGREES. NO SEIZURE ACTIVITY NOTED. SINUS ARRHYTHMIA/BBB PRESENT ON TELEMETRY. 90% 02 SAT ON ROOM AIR. PATIENT INSISTED ON CONT PULSE OX BE REMOVED WAS AGGREVATING TO HIM.TURNED AND REPOSITIONED Q 2 HRS BY CNAs. HOB UP 35 DEGREES.
[2024-01-17] MEDS: PANTOPRAZOLE 40MG TABLET 40 MG PO (08:19)
[2024-01-17] MEDS: FUROSEMIDE 20MG TABLET 20 MG PO (08:19)
[2024-01-17] MEDS: FAMOTIDINE 20MG TABLET 40 MG PO (08:19)
[2024-01-17] MEDS: METOPROLOL SUCCINATE XL 25MG TABLET 25 MG PO (08:19)
[2024-01-17] MEDS: IRBESARTAN 75MG TABLET 18.75 MG PO (08:20)
[2024-01-17] MEDS: levETIRAcetam 1,000 MG in 0.9 % SODIUM CHLORIDE 100 ML 220 MG IV ×2 (09:56→21:25)
[2024-01-17] MEDS: ACETAMINOPHEN 325MG TAB 650 MG PO (10:38)
--- NOTE | 2024-01-17 15:20 | PC.NURSE ---
PT IS RESTING IN BED. ALERT AND ORIENTED X3. TURNED AND REPOSITIONED IN BED. PT HAS BEEN TAKING SIPS OF WATER. TOLERATING TUBE FEEDINGS WELL. NO RESIDUAL NOTED AT 0800 THIS MORNING. LUNG SOUNDS CLEAR. ABDOMEN SOFT/NON TENDER WITH ACTIVE BOWEL SOUNDS. LEFT SIDED WEAKNESS NOTED. WILL CONTINUE TO MONITOR.
--- NOTE | 2024-01-17 16:02 | EXP.PN ---
Subjective *Date: 01/17/24 *Time: 16:02 Interval history: alert awake seen at bedside, holding conversations, denied any active CP, SOB. no acute events overnight Exam Data for Last 24 hours Vital signs and Labs for Last 24 Hours: Temp Pulse Resp BP Pulse Ox O2 Del Method O2 Flow Rate 98.0 F 69 17 115/67 94 L Room Air 90 01/17/24 15:12 01/17/24 15:12 01/17/24 15:12 01/17/24 15:12 01/17/24 15:12 01/17/24 15:12 01/16/24 23:00 I & O for Last 24 hours: Intake & Output 01/14/24 01/15/24 01/16/24 01/17/24 23:59 23:59 23:59 23:59 Intake Total 611 / 1866 4264 / 4264 1342 / 1342 Output Total 1000 / 1000 900 / 900 1900 / 1900 Balance -389 / 866 3364 / 3364 -558 / -558 Weight 72.575 kg 72.5 kg 78.018 kg 79.016 kg Microbiology Reports for the Last 24 Hours: Microbiology 01/14/24 21:00 Urine,Catheterized Urine Culture - Final Constitutional Constitutional: no acute distress *Routine HEENT Exam Head: Present normocephalic Eye: Present EOMI and PERRL ENT: Present mucous membranes moist *Routine Neck Exam Neck: Present supple; Absent lymphadenopathy *Routine Respiratory Exam Respiratory: Present CTA bilaterally *Routine Cardiovascular Exam Cardiovascular: Present RRR *Routine Abdominal Exam Abdominal: Present soft and normoactive bowel sounds; Absent tenderness *Routine Extremities Exam Extremities: Absent cyanosis, clubbing or edema *Routine Skin Exam Skin: Present warm; Absent rash *Routine Neurological Exam Neurological: Present alert and oriented X3 Assessment and Plan *Assessment and plan (1) Breakthrough seizure: Status: Acute Category: Medical Code(s): G40.919 - Epilepsy, unspecified, intractable, without status epilepticus (2) Altered mental status: Status: Acute Qualifiers: Altered mental status type: transient alteration of awareness Qualified Code(s): R40.4 - Transient alteration of awareness Category: Medical Code(s): R41.82 - Altered mental status, unspecified (3) Elevated troponin: Status: Acute Category: Medical Code(s): R79.89 - Other specified abnormal findings of blood chemistry (4) Stroke: Problem Comment: old Status: Acute Qualifiers: CVA mechanism: unspecified Qualified Code(s): I63.9 - Cerebral infarction, unspecified Category: Medical Code(s): I63.9 - Cerebral infarction, unspecified (5) HTN (hypertension): Status: Acute Qualifiers: Hypertension type: unspecified Qualified Code(s): I10 - Essential (primary) hypertension Category: Medical Code(s): I10 - Essential (primary) hypertension (6) CAD (coronary artery disease): Status: Acute Qualifiers: Coronary Disease-Associated Artery/Lesion type: [place] artery [place] vs. transplanted heart: [place] heart Associated angina: unspecified whether angina present Qualified Code(s): I25.10 - Atherosclerotic heart disease of [place] coronary artery without angina pectoris Category: Medical Code(s): I25.10 - Atherosclerotic heart disease of [place] coronary artery without angina pectoris (7) S/P percutaneous endoscopic gastrostomy (PEG) tube placement: Status: Acute Category: Surgical Code(s): Z93.1 - Gastrostomy status Plan 73-year-old male with a history of seizure disorder, [place], atrial fibrillation, CVA with residual left-sided deficits managed on Keppra presenting to the emergency department for evaluation with concern for seizure-like activity at the nursing facility. On arrival workup was unremarkable. repeat troponin was obtained at 3 hours which demonstrated elevation to 0.33. Repeat EKG was obtained that did demonstrate some acute dynamic changes, however does not meet STEMI criteria. Cardiology was requested admission. Discussed with the ER. -Altered mental status likely secondary to breakthrough seizure: - improved Dose updated to 1000mg twice daily Seizure precaution Aspiration precaution -Elevated troponin: Likely due to oxygen demand. Continue cardiac monitoring plan for cardiac cath - plan for CABIN SUPERVISOR-D implantation/upgrade on Thursday. Serial troponin Cardiology consult Monitor for chest pain or rhythm change plan for CABIN SUPERVISOR-D implantation/upgrade on Thursday. -History of CAD: On Xarelto, resume home medication -CVA: Left-sided residual. On gastric tube. On Pepcid PT OT consult Hypertension Metoprolol valsartan On Xarelto Full code plan for CABIN SUPERVISOR-D implantation/upgrade on Thursday.
--- NOTE | 2024-01-17 19:56 | DIET.NUTRFU ---
At goal rate of tubefeeding, 60ml/hr of Nutren 2.0 tolerating with no residuals. BM noted 3/2. Labs reviewed. He also is reciving soft foods for comfort. TF is providing 100% nutrition.
[2024-01-17] MEDS: FINASTERIDE 5MG TABLET 5 MG PO (21:20)
[2024-01-17] MEDS: SERTRALINE 50MG TABLET 50 MG PO (21:20)
[2024-01-17] MEDS: ATORVASTATIN 40MG TABLET 80 MG PO (21:20)
[2024-01-18] VITALS (17 sets, daily range): BP systolic 110–155; BP diastolic 51–99; PULSE 60–91; RESP 16–20; TEMP 36.4–37.1; O2SAT 92–96; BMI 21.1
[2024-01-18] MEDS: FUROSEMIDE 20MG TABLET 20 MG PO (08:49)
[2024-01-18] MEDS: FAMOTIDINE 20MG TABLET 40 MG PO (08:49)
[2024-01-18] MEDS: levETIRAcetam 1,000 MG in 0.9 % SODIUM CHLORIDE 100 ML 220 MG IV ×2 (08:49→21:55)
[2024-01-18] MEDS: IRBESARTAN 75MG TABLET 18.75 MG PO (08:49)
[2024-01-18] MEDS: PANTOPRAZOLE 40MG TABLET 40 MG PO (08:50)
[2024-01-18] MEDS: METOPROLOL SUCCINATE XL 25MG TABLET 25 MG PO (08:50)
[2024-01-18] MEDS: ONDANSETRON 4MG/2ML VIAL 4 MG IV (08:54)
--- NOTE | 2024-01-18 09:07 | IR_ITS ---
APPROVED REPORT Patient Location: Inpatient Contact Lens Polisher: [place] Lott RT (R) PROCEDURES 1. Pocket Revision 2. Placement of left ventricular sensing pacing lead into the coronary sinus. 3. Permanent cardiac resynchronization therapy with defibrillator/biventricular pacemaker. INDICATION Systolic Congestive Heart Failure, ejection <35%, Wide QRS >120ms, [place] Heart Assoication Class 3 Congestive Heart Failure Informed consent was obtained prior to the procedure. COMPLICATIONS None Estimated Blood Loss: Less than 10 mls TECHNIQUE 1% lidocaine with epinephrine used to anesthetize the left anterior aspect of the chest. Scalpel was used to make the initial cutaneous incision and to dissect down into the fascia. The generator was removed from the existing pocket. Digital manipulation was required along with intermittent usage of scalpel in order to revise the pocket. The leads were removed from the old generator. The patient was then placed in Trendelenburg position and the subclavian vein was accessed 1 time via the Selinger technique. A 9.5 [place] sheath was placed under fluoroscopic guidance into the subclavian vein. The dilator was removed from the sheath. Under fluoroscopic guidance the coronary sinus was cannulated and confirmed with an injection of contrast. An 0.014 wire was then placed distally in the inferior posterior segment of the left ventricle via the coronary sinus and the left ventricular lead was advanced. After achieving excellent thresholds and interrogation numbers the sheath was then peeled away and the lead was then secured into place using silk suture. Ancef was used to flush the pocket and the 3 leads were attached to the GUEST SERVICE AGENT-D generator. The generator was then secured into place by heavy silk suture. Monocryl was used to close the subcutaneous layers while bisi were used to close the subcutaneous layers while bisi were used to close the cutaneous layer. A pressure dressing was placed and the patient was transferred to the postop holding area in stable condition for postoperative care. INTERROGATION Generator Model number: [place] HF, [id number] Generator Serial number: [id number] Atrial lead: P-wave: 2.7 mV Impedance: 410 ohms Threshold: 0.5V@0.5ms Right Ventricular lead: R-wave: >12mV Impedance: 360 ohms Threshold: 0.875V@0.5ms Left Ventricular Lead Model number: Kellie, 86cm, [id number] Left Ventricular Lead serial number: [id number] Impedance: 810 ohms Threshold: 1.5V@1.0ms Pacing Parameters: Mode: DDDR Base/Max Track:60 ppm / 130 ppm VT-1: 150 bpm, monitor VT-2: 181 bpm, ATP x2, 36 J,40 J, 40 J x2 VF: 214 bpm, ATP x1, 36 J, 40 J, 40 J x 4 No diaphragmatic stimulation at 10 volts. IMPRESSION 1. Successful pocket revision for biventricular pacemaker generator with cardiac resynchronization/defibrillator therapy. 2. Successful placement of left ventricular sensing pacing lead via the coronary sinus. 3. Successful permanent cardiac resynchronization /defibrillator therapy device. PLAN 1. post op wound care, follow up office visit Electronically signed by : Randall De La Paz MD 01/20/2024 13:00:21
[2024-01-18 11:01] LABS: Basophils % 0.4 % (0.1-2.0); Eosinophils # 0.2 K/mm3 (0.0-0.4); Eosinophils % 2.5 % (0.1-12.0); Hematocrit 39.7 % (42.0-52.0); Hemoglobin 12.8 g/dL (14.1-18.0); Lymphocytes # 1.6 K/mm3 (0.7-4.5); Lymphocytes % 24.7 % (10-50); Mean Corpuscular HGB Conc 32.3 g/dL (31.8-35.4); Mean Corpuscular Hemoglobin 31.5 pg (27.0-31.2); Mean Corpuscular Volume 97.5 fl (80-94); Mean Platelet Volume 8.7 fl (7.4-10.4); Monocytes # 0.3 K/mm3 (0.1-1.0); Monocytes % 5.5 % (1.7-9.3); Neutrophils # 4.2 K/mm3 (1.8-7.8); Neutrophils % 66.9 % (37.0-80.0); Platelet Count 177 K/mm3 (142-424); Red Blood Count 4.07 M/mm3 (4.60-6.20); Red Cell Distribution Width 13.6 % (11.5-17.5); White Blood Count 6.3 K/mm3 (4.8-10.8)
[2024-01-18 11:11] LABS: Anion Gap 8.7 mEq/L (5-15); Blood Urea Nitrogen 11 mg/dl (9-20); Calcium 8.9 mg/dl (8.4-10.2); Carbon Dioxide 29 mmol/L (22.0-30.0); Chloride 104 mmol/L (98-107); Creatinine Clearance Estimated 73 mL/min (50-200); Estimated Glomerular Filt Rate 163 ml/min (>60); GFR (African American) 197 ML/MIN (>60); Glucose 103 mg/dl (74-100); Potassium 3.7 mmoL/L (3.5-5.1); Sodium 138 mmol/L (136-145)
--- NOTE | 2024-01-18 13:45 | P.PNANES_ITS ---
[facility] Disclaimer: The information contained in this section may have been updated after the patient was seen, as this information can be updated by other users. Medical History (Updated 01/15/24 @ 12:12 by RODNEY De Jesus) Heart attack Stroke Family History (Updated 01/15/24 @ 00:58 by Iris Jo, JANENE) Other Family history of cancer Family history of diabetes mellitus Social History (Updated 01/15/24 @ 00:52 by Iris Jo RN) Smoking Status: Former smoker alcohol intake: never substance use type: denies use current occupational status: retired Travel in the last 8 weeks: None [facility] Anesthesia Checklist Patient Identification Patient Identification: Arm Band and Verbal (Name & ) Structural Data Admitted From: Inpatient Planned Operative Procedure/s: Upgrade AICD Consent for Planned Operative Procedure(s) Verified: Yes Verified Documents: Surgical Consent and History and Physical NPO Status Verified Time NPO: 18:00 Chart Verification Results Verified: CBC, BMP, ECG and Chest Xray Additional verifications Patient : No Anesthesia Reactions: No Cardiovascular Assessment Heart Sounds: S1 & S2 Pulse Rhythm: Irregular Peripheral Edema: No Airway Assessment Mallampati Score:: Class II C-Spine Mobility Assessed: Yes (Limited extension) TMJ Mobility Assessed: Yes Dentition: Poor Dentition (Most teeth missing. Nothing loose per pt.) Neurological Assessment Level of Consciousness: Awake, Alert, Appropriate and Follows Commands Hx Seizures: Yes (H/o breakthrough seizure at one time?) Numbness or tingling in extremities: Yes (s/p CVA w/Lt-sided weakness) Anesthesia Plan Anesthesia Risk discussed: Yes Anesthesia Plan: Verified ASA Class: IV Anesthesia Type: MAC
[2024-01-18] MEDS: CEFAZOLIN SODIUM 1 GM in 0.9 % SODIUM CHLORIDE 50 ML IV (14:05)
[2024-01-18] MEDS: CEFAZOLIN 1GM VIAL 1 GM TP (14:05)
--- NOTE | 2024-01-18 14:06 | P.PN_ITS ---
Subjective Subjective Date: 01/18/24 Time: 09:00 Principal diagnosis: HFrEF, CAD Interval history: This is a 73-year-old gentleman with a history of seizure disorder, [place], A-fib, CVA, HFrEF status post AICD placement. The patient was admitted to the hospital following a seizure. The patient did undergo a left cardiac catheterization secondary to a non-STEMI. The patient had patent coronary artery disease but was recommended for an upgrade to a PROFESSOR OF INDUSTRIAL TECHNOLOGY-D due to his HFrEF and wide complex QRS. The patient denies any chest pain or pressure. He states his shortness of breath has improved. He denies any lower extremity edema. He denies any fever, chills, nausea, vomiting, diarrhea, PND orthopnea. Exam Data for Last 24 hours Vital signs and Labs for Last 24 Hours: Temp Pulse Resp BP Pulse Ox O2 Del Method O2 Flow Rate 97.9 F 75 20 119/75 94 L Room Air 90 01/18/24 12:00 01/18/24 12:01/18/24 12:01/18/24 12:01/18/24 12:01/18/24 12:01/16/24 23:00 Laboratory Results - last 24 hr 01/18/24 10:39: WBC 6.3, RBC 4.07 L, Hgb 12.8 L, Hct 39.7 L, MCV 97.5 H, MCH 31.5 H, MCHC 32.3, RDW 13.6, Plt Count 177, MPV 8.7, Neut % (Auto) 66.9, Lymph % (Auto) 24.7, [place] % (Auto) 5.5, Eos % (Auto) 2.5, Baso % (Auto) 0.4, Neut # (Auto) 4.2, Lymph # (Auto) 1.6, [place] # (Auto) 0.3, Eos # (Auto) 0.2, Baso # (Auto) 0.0, Sodium 138, Potassium 3.7, Chloride 104, Carbon Dioxide 29, Anion Gap 8.7, BUN 11, Creatinine 0.50 L, Estimated Creat Clear 73, Estimated GFR 163, Est GFR ( Amer) 197, Glucose 103 H, Calcium 8.9 I & O for Last 24 hours: Intake & Output 01/15/24 01/16/24 01/17/2401/17/24 23:59 23:59 23:59 23:59 Intake Total 611 / 1866 4264 / 4264 2890 / 3916 1026 / 1026 Output Total 1000 / 1000 900 / 900 3300 / 4100 1000 / 1000 Balance -389 / 866 3364 / 3364 -410 / -184 Weight 159 lb 13.362 oz 172 lb 174 lb 3.2 oz 173 lb 6.4 oz Microbiology Reports for the Last 24 Hours: Microbiology 01/14/24 21:00 Blood Blood Culture - Preliminary 01/14/24 20:57 Blood Blood Culture - Preliminary Constitutional Constitutional: no acute distress and average body habitus *Routine HEENT Exam Head: Present normocephalic and atraumatic ENT: Present mucous membranes moist *Routine Neck Exam Neck: Present supple, full ROM and normal carotid upstroke; Absent JVD, carotid bruit or lymphadenopathy *Routine Respiratory Exam Respiratory: Present CTA bilaterally, normal respiratory effort, able to speak in complete sentences and symmetric chest movement *Routine Cardiovascular Exam Cardiovascular: Present RRR, Normal S1 and Normal S2; Absent murmur or gallop *Routine Abdominal Exam Abdominal: Present soft and normoactive bowel sounds; Absent tenderness, distended or organomegaly *Routine Extremities Exam Extremities: Present pulses intact and normal capillary refill; Absent cyanosis, clubbing or edema Comments: Left-sided hemiparesis *Routine Skin Exam Skin: Present intact and warm; Absent erythema *Routine Neurological Exam Neurological: Present alert, oriented X3 and CN II-XII intact; Absent sensory deficit or motor deficit Routine Psychiatric Exam Psychiatric: Present normal affect Progress Note: A&P Assessment and plan (1) Breakthrough seizure: Status: Acute (2) Elevated troponin: Status: Acute (3) Stroke: Problem details: old Status: Acute (4) HTN (hypertension): Status: Acute (5) CAD (coronary artery disease): Status: Acute (6) S/P percutaneous endoscopic gastrostomy (PEG) tube placement: Status: Acute (7) Non-STEMI (non-ST elevated myocardial infarction): Status: Acute (8) Automatic implantable cardioverter-defibrillator in situ: Status: Acute (9) Paroxysmal atrial fibrillation: Status: Acute Assessment and Plan Assessment and Plan for All Diagnoses:: Plan: 1. The patient was admitted to the hospital following a seizure. On Keppra. Will defer to the hospitalist. 2. The patient had a non-STEMI and underwent left cardiac catheterization. The patient had patent coronary artery disease with no intervention. CAD is stable. 3. The patient does have HFrEF. His ejection fraction is 30%. The patient is scheduled to undergo upgrade to a biventricular AICD today secondary to his LV dysfunction and wide QRS complex. The patient and his family have been educated the risk and benefits of proceeding with upgrade to biventricular AICD. The patient has family verbalized understanding and are agreeable in proceeding with the procedure. 4. The patient is n.p.o. in preparation for AICD upgrade. 5. Continue metoprolol for CAD and HFrEF. 6. Stop valsartan and start Entresto 24/26 mg p.o. twice daily for HFrEF. 7. Start Jardiance 10 mg daily for HFrEF. 8. Continue Lasix. 9. The patient does have a history of paroxysmal atrial fibrillation. He is on Xarelto for long-term anticoagulation. 10. The patient is status post stroke with left-sided hemiparesis. He does have a PEG tube in place. 11. His blood pressure is well-controlled. 12. His LDL goal is less than 55. He is on a statin. 13. Further recommendations were made pending the patient's response to treatment following his AICD upgrade today. Thank you for the opportunity to participate in the care of this patient. All recommendations and orders are per Dr. Oconnor.
--- NOTE | 2024-01-18 14:56 | P.PN_ITS ---
Subjective *Date: 01/18/24 *Time: 14:56 Interval history: alert awake seen at bedside, alert awake and at bedside, holding conversations. appears comfortable, denied any active CP, SOB. no acute events overnight Exam Data for Last 24 hours Vital signs and Labs for Last 24 Hours: Temp Pulse Resp BP Pulse Ox O2 Del Method O2 Flow Rate 97.9 F 75 20 119/75 94 L Room Air 90 01/18/24 12:00 01/18/24 12:00 01/18/24 12:00 01/18/24 12:01/18/24 12:01/18/24 12:00 01/16/24 23:00 Laboratory Results - last 24 hr 01/18/24 10:39: WBC 6.3, RBC 4.07 L, Hgb 12.8 L, Hct 39.7 L, MCV 97.5 H, MCH 31.5 H, MCHC 32.3, RDW 13.6, Plt Count 177, MPV 8.7, Neut % (Auto) 66.9, Lymph % (Auto) 24.7, [place] % (Auto) 5.5, Eos % (Auto) 2.5, Baso % (Auto) 0.4, Neut # (Auto) 4.2, Lymph # (Auto) 1.6, [place] # (Auto) 0.3, Eos # (Auto) 0.2, Baso # (Auto) 0.0, Sodium 138, Potassium 3.7, Chloride 104, Carbon Dioxide 29, Anion Gap 8.7, BUN 11, Creatinine 0.50 L, Estimated Creat Clear 73, Estimated GFR 163, Est GFR ( Amer) 197, Glucose 103 H, Calcium 8.9 I & O for Last 24 hours: Intake & Output 01/15/24 01/16/24 01/17/24 01/18/24 23:59 23:59 23:59 23:59 Intake Total 611 / 1866 4264 / 4264 2890 / 3916 1026 / 1026 Output Total 1000 / 1000 900 / 900 3300 / 4100 2100 / 2100 Balance -389 / 866 3364 / 3364 -410 / -184 -1074 / -1074 Weight 72.5 kg 78.018 kg 79.016 kg 78.653 kg Microbiology Reports for the Last 24 Hours: Microbiology 01/14/24 21:00 Blood Blood Culture - Preliminary 01/14/24 20:57 Blood Blood Culture - Preliminary Constitutional Constitutional: no acute distress *Routine HEENT Exam Head: Present normocephalic Eye: Present EOMI and PERRL ENT: Present mucous membranes moist *Routine Neck Exam Neck: Present supple; Absent lymphadenopathy *Routine Respiratory Exam Respiratory: Present CTA bilaterally *Routine Cardiovascular Exam Cardiovascular: Present RRR *Routine Abdominal Exam Abdominal: Present soft and normoactive bowel sounds; Absent tenderness *Routine Extremities Exam Extremities: Absent cyanosis, clubbing or edema *Routine Skin Exam Skin: Present warm; Absent rash *Routine Neurological Exam Neurological: Present alert and oriented X3 Assessment and Plan *Assessment and plan (1) Breakthrough seizure: Status: Acute Category: Medical Code(s): G40.919 - Epilepsy, unspecified, intractable, without status epilepticus (2) Altered mental status: Status: Acute Qualifiers: Altered mental status type: transient alteration of awareness Qualified Code(s): R40.4 - Transient alteration of awareness Category: Medical Code(s): R41.82 - Altered mental status, unspecified (3) Elevated troponin: Status: Acute Category: Medical Code(s): R79.89 - Other specified abnormal findings of blood chemistry (4) Stroke: Problem Comment: old Status: Acute Qualifiers: CVA mechanism: unspecified Qualified Code(s): I63.9 - Cerebral infarction, unspecified Category: Medical Code(s): I63.9 - Cerebral infarction, unspecified (5) HTN (hypertension): Status: Acute Qualifiers: Hypertension type: unspecified Qualified Code(s): I10 - Essential (primary) hypertension Category: Medical Code(s): I10 - Essential (primary) hypertension (6) CAD (coronary artery disease): Status: Acute Qualifiers: Coronary Disease-Associated Artery/Lesion type: [place] artery [place] vs. transplanted heart: [place] heart Associated angina: unspecified whether angina present Qualified Code(s): I25.10 - Atherosclerotic heart disease of [place] coronary artery without angina pectoris Category: Medical Code(s): I25.10 - Atherosclerotic heart disease of [place] coronary artery without angina pectoris (7) S/P percutaneous endoscopic gastrostomy (PEG) tube placement: Status: Acute Category: Surgical Code(s): Z93.1 - Gastrostomy status Plan 73-year-old male with a history of seizure disorder, MS, atrial fibrillation, CVA with residual left-sided deficits managed on Keppra presenting to the emergency department for evaluation with concern for seizure-like activity at the nursing facility. On arrival workup was unremarkable. repeat troponin was obtained at 3 hours which demonstrated elevation to 0.33. Repeat EKG was obtained that did demonstrate some acute dynamic changes, however does not meet STEMI criteria. Cardiology was requested admission. Discussed with the ER. -Altered mental status likely secondary to breakthrough seizure: - improved Dose updated to 1000mg twice daily Seizure precaution Aspiration precaution -Elevated troponin: Likely due to oxygen demand. Continue cardiac monitoring plan for cardiac cath - plan for PRODUCT DEVELOPMENT CONSULTANT-D implantation/upgrade on Thursday. Serial troponin Cardiology consult - s/p cardiac cath, plan for PRODUCT DEVELOPMENT CONSULTANT - D insertion today Monitor for chest pain or rhythm change plan for PRODUCT DEVELOPMENT CONSULTANT-D implantation/upgrade on today -History of CAD: On Xarelto, resume home medication -CVA: Left-sided residual. On gastric tube. On Pepcid PT OT consult Hypertension Metoprolol valsartan On Xarelto Full code plan for PRODUCT DEVELOPMENT CONSULTANT-D implantation/upgrade on today, await cardiology recs if they are ok to DC post procedure
--- NOTE | 2024-01-18 15:18 | XR_ITS ---
FINAL REPORT TECHNIQUE: Single view chest CLINICAL HISTORY: Confirm pacemaker/AID placement COMPARISON: 01/14/2024 FINDINGS: A single view of the chest was obtained. The heart is enlarged. There is a left subclavian ICD in place. There is mild left lung atelectasis. Lungs are otherwise clear. There is no pneumothorax. Osseous structures are unremarkable. IMPRESSION: Mild left lung atelectasis. Reviewed, Interpreted and Dictated by Ran Nichole III, MD Transcribed by Onelia Trejo Authenticated and . [facility]
[2024-01-18] MEDS: IOPAMIDOL-370 (76%);100ML BOTTLE 30 ML IV (15:27)
[2024-01-18] MEDS: EMPAGLIFLOZIN 10MG TABLET 10 MG PO (16:19)
--- NOTE | 2024-01-18 18:37 | PC.NURSE ---
PT HAS BEEN A&O THIS SHIFT. TOLERATING RA WELL. AT BEDSIDE T/O DAY. PT HAD PACEMAKER UPGRADE TODAY, TOLERATED WELL. SITE TO LEFT UPPER CHEST INTACT. TUBE FEEDINGS RESTARTED AFTER ARRIVAL BACK TO FLOOR. IV FLUIDS D/C PER CARDIOLOGY. PER MD FUCHS, LEAVE RATE OF 60ML/HR THE SAME, INCREASE FLUSH TO 200ML/6HRS. NO RESIDUAL NOTED BEFORE STARTING FEED, PLACEMENT CHECKED PER AUSCULTATION. PT RESTING AT THIS TIME, TURNED IN BED TOLERATED. F/C PRESENT DRAINING LIGHT YELLOW URINE. VSS.
[2024-01-18 19:09] LABS: Levetiracetam (Keppra) 20.4 ug/mL (10.0-40.0)
[2024-01-18] MEDS: SERTRALINE 50MG TABLET 50 MG PO (21:43)
[2024-01-18] MEDS: SACUBITRIL/VALSARTAN 24-26MG TABLET 1 EACH PO (21:43)
[2024-01-18] MEDS: ACETAMINOPHEN 325MG TAB 650 MG PO (21:43)
[2024-01-18] MEDS: ATORVASTATIN 40MG TABLET 80 MG PO (21:44)
[2024-01-18] MEDS: FINASTERIDE 5MG TABLET 5 MG PO (21:45)
[2024-01-19] VITALS: BP 91/54; PULSE 73; PULSE 84; RESP 18; TEMP 37.3; O2SAT 92
[2024-01-19 04:00] VITALS: BP 91/42; PULSE 66; PULSE 74; RESP 18; TEMP 36.7; O2SAT 93; BMI 20.9
[2024-01-19] MEDS: ACETAMINOPHEN 325MG TAB 650 MG PO (04:15)
[2024-01-19 06:27] LABS: Anion Gap 8.3 mEq/L (5-15); Blood Urea Nitrogen 14 mg/dl (9-20); Carbon Dioxide 32 mmol/L (22.0-30.0); Chloride 103 mmol/L (98-107); Creatinine Clearance Estimated 73 mL/min (50-200); Estimated Glomerular Filt Rate 132 ml/min (>60); GFR (African American) 160 ML/MIN (>60); Glucose 128 mg/dl (74-100); Potassium 3.3 mmoL/L (3.5-5.1); Sodium 140 mmol/L (136-145)
[2024-01-19 06:32] LABS: Basophils % 0.6 % (0.1-2.0); Eosinophils # 0.2 K/mm3 (0.0-0.4); Eosinophils % 2.9 % (0.1-12.0); Hematocrit 40.6 % (42.0-52.0); Hemoglobin 13.5 g/dL (14.1-18.0); Lymphocytes # 1.7 K/mm3 (0.7-4.5); Lymphocytes % 22.3 % (10-50); Mean Corpuscular HGB Conc 33.2 g/dL (31.8-35.4); Mean Corpuscular Hemoglobin 32.5 pg (27.0-31.2); Mean Corpuscular Volume 97.6 fl (80-94); Mean Platelet Volume 8.6 fl (7.4-10.4); Monocytes # 0.5 K/mm3 (0.1-1.0); Monocytes % 6.2 % (1.7-9.3); Neutrophils # 5.1 K/mm3 (1.8-7.8); Platelet Count 174 K/mm3 (142-424); Red Blood Count 4.15 M/mm3 (4.60-6.20); Red Cell Distribution Width 13.7 % (11.5-17.5); White Blood Count 7.5 K/mm3 (4.8-10.8)
--- NOTE | 2024-01-19 07:45 | P.DS_ITS ---
General Admission date:: 01/15/24 Discharge date: 01/19/24 HPI HPI HPI: This is a 73-year-old male with a history of seizure disorder, GA, atrial fibrillation, CVA with residual left-sided deficits managed on Keppra presenting to the emergency department for evaluation with concern for seizure-like activity at the nursing facility. According nursing facility report, the patient has had seizure-like activity today. EMS noted that he did have a brief 22nd seizure en route, which resolved spontaneously with no abortive medications administered. Otherwise, he remained stable en route, but confused. He was able to talk to them. Per nursing facility, his baseline is alert but pleasantly confused. No other acute concerns noted at this time. admitted for further work up. Hospital Course Hospital Course Hospital Course: 73-year-old male with a history of seizure disorder, GA, atrial fibrillation, CVA with residual left-sided deficits managed on Keppra presenting to the emergency department for evaluation with concern for seizure-like activity at the nursing facility. On arrival workup was unremarkable. repeat troponin was obtained at 3 hours which demonstrated elevation to 0.33. Repeat EKG was obtained that did demonstrate some acute dynamic changes, however does not meet STEMI criteria. Cardiology requested admission. Patient remained stable during admission, no further episodes. Tolerated placement of pacemaker without complication. Pocket stable. Stable for discharge back to longterm. Problems addressed as follows: -Altered mental status likely secondary to breakthrough seizure: improved -History of CVA a with chronic left-sided paralysis Patient was monitored with seizure precautions during admission. Keppra was increased to 1000 mg twice daily. No further seizures during admission. No signs of aspiration during admission. Patient is G-tube dependent. Has pers istent left-sided residual paralysis. Therapy worked with patient during admission. Tolerating tube feeds without issue. -Elevated troponin: -History of CAD -Heart failure with reduced ejection fraction -Hypertension -Hyperlipidemia Patient found to have NSTEMI. Underwent left heart cath with patent coronary artery disease and no interventions. Will continue goal-directed therapy for CAD. He did however have heart failure with reduced ejection fraction, EF 30%. Underwent BiV AICD placement on 01/17 secondary to his LV dysfunction and wide QRS complex. Tolerated the procedure well. Plan to continue metoprolol for CAD and heart failure. Discontinued valsartan and was initiated on Entresto 24/26 mg twice daily. Continue Lasix daily. In setting of paroxysmal A-fib, resume Xarelto after pacemaker placement for long-term anticoagulation. Plan for follow-up with cardiology in the coming weeks for reevaluation of SPECIAL EDUCATION EDUCATIONAL ASSISTANT-D History of right-sided CVA with residual left-sided hemiparesis. PEG tube dependent due to risk for aspiration. Total time spent on discharge 41 minutes in counseling, discussion with subspecialist, documentation, chart review, and direct care with patient. Exam Data for Last 24 hours Vital signs and Labs for Last 24 Hours: Temp Pulse Resp BP Pulse Ox O2 Del Method O2 Flow Rate 98.0 F 66 18 91/42 L 93 L Room Air 90 01/19/24 04:00 01/19/24 04:00 01/19/24 04:00 01/19/24 04:00 01/19/24 04:00 01/19/24 07:00 01/16/24 23:00 Laboratory Results - last 24 hr 01/15/24 05:37: Levetiracetam 20.4 01/18/24 10:39: WBC 6.3, RBC 4.07 L, Hgb 12.8 L, Hct 39.7 L, MCV 97.5 H, MCH 31.5 H, MCHC 32.3, RDW 13.6, Plt Count 177, MPV 8.7, Neut % (Auto) 66.9, Lymph % (Auto) 24.7, [place] % (Auto) 5.5, Eos % (Auto) 2.5, Baso % (Auto) 0.4, Neut # (Auto) 4.2, Lymph # (Auto) 1.6, [place] # (Auto) 0.3, Eos # (Auto) 0.2, Baso # (Auto) 0.0, Sodium 138, Potassium 3.7, Chloride 104, Carbon Dioxide 29, Anion Gap 8.7, BUN 11, Creatinine 0.50 L, Estimated Creat Clear 73, Estimated GFR 163, Est GFR ( Amer) 197, Glucose 103 H, Calcium 8.9 01/19/24 05:23: WBC 7.5, RBC 4.15 L, Hgb 13.5 L, Hct 40.6 L, MCV 97.6 H, MCH 32.5 H, MCHC 33.2, RDW 13.7, Plt Count 174, MPV 8.6, Neut % (Auto) 68.0, Lymph % (Auto) 22.3, [place] % (Auto) 6.2, Eos % (Auto) 2.9, Baso % (Auto) 0.6, Neut # (Auto) 5.1, Lymph # (Auto) 1.7, [place] # (Auto) 0.5, Eos # (Auto) 0.2, Baso # (Auto) 0.0, Sodium 140, Potassium 3.3 L, Chloride 103, Carbon Dioxide 32 H, Anion Gap 8.3, BUN 14 D, Creatinine 0.60 L, Estimated Creat Clear 73, Estimated GFR 132, Est GFR ( Amer) 160, Glucose 128 H D, Calcium 9.0 I & O for Last 24 hours: Intake & Output 01/16/24 01/17/24 01/18/24 01/19/24 23:59 23:59 23:59 23:59 Intake Total 4264 / 4264 2890 / 3916 1026 / 1648 622 / 622 Output Total 900 / 900 3300 / 4100 2100 / 2100 1000 / 1000 Balance 3364 / 3364 -410 / -184 -1074 / -452 -378 / -378 Weight 78.018 kg 79.016 kg 78.653 kg 78.046 kg Microbiology Reports for the Last 24 Hours: Microbiology 01/14/24 21:00 Blood Blood Culture - Preliminary 01/14/24 20:57 Blood Blood Culture - Preliminary Constitutional Constitutional: no acute distress, thin, chronically ill appearing and cooperative *Routine HEENT Exam Head: Present normocephalic Eye: Present EOMI and PERRL ENT: Present mucous membranes moist *Routine Neck Exam Neck: Present supple; Absent lymphadenopathy *Routine Respiratory Exam Respiratory: Present CTA bilaterally; Absent respiratory distress, stridor or wheezes *Routine Cardiovascular Exam Cardiovascular: Present RRR *Routine Abdominal Exam Abdominal: Present soft and normoactive bowel sounds; Absent tenderness Comments: g-tube in place *Routine Rectal Exam Patient deferred: visual exam *Routine Exam Patient deferred: penile exam *Routine Extremities Exam Extremities: Absent cyanosis, clubbing or edema Comments: left sided flaccid paralysis, chronic *Routine Skin Exam Skin: Present warm; Absent rash *Routine Neurological Exam Neurological: Present alert; Absent altered mental status or moving all extremities Comments: oriented to self; chronic left sided flaccid paralysis Results Data Completed and Pending Labs on day of discharge: Labs from last 24 hours 01/19/24 01/18/24 01/15/24 05:23 10:39 05:37 WBC 7.5 6.3 RBC 4.15 L 4.07 L Hgb 13.5 L 12.8 L Hct 40.6 L 39.7 L MCV 97.6 H 97.5 H MCH 32.5 H 31.5 H MCHC 33.2 32.3 RDW 13.7 13.6 Plt Count 174 177 MPV 8.6 8.7 Neut % (Auto) 68.0 66.9 Lymph % (Auto) 22.3 24.7 [place] % (Auto) 6.2 5.5 Eos % (Auto) 2.9 2.5 Baso % (Auto) 0.6 0.4 Neut # (Auto) 5.1 4.2 Lymph # (Auto) 1.7 1.6 [place] # (Auto) 0.5 0.3 Eos # (Auto) 0.2 0.2 Baso # (Auto) 0.0 0.0 Sodium 140 138 Potassium 3.3 L 3.7 Chloride 103 104 Carbon Dioxide 32 H 29 Anion Gap 8.3 8.7 BUN 14 D 11 Creatinine 0.60 L 0.50 L Estimated Creat Clear 73 73 Estimated GFR 132 163 Est GFR ( Amer) 160 197 Glucose 128 H D 103 H Calcium 9.0 8.9 Levetiracetam 20.4 Preliminary micro results at discharge 01/14/24 21:00 Blood Culture - Preliminary Blood 01/14/24 20:57 Blood Culture - Preliminary Blood DS: Diagnosis Discharge Diagnosis (1) Breakthrough seizure: Status: Acute Code(s): G40.919 - Epilepsy, unspecified, intractable, without status epilepticus (2) Altered mental status: Status: Acute Code(s): R41.82 - Altered mental status, unspecified Qualifiers: Altered mental status type: transient alteration of awareness Qualified Code(s): R40.4 - Transient alteration of awareness (3) Elevated troponin: Status: Acute Code(s): R79.89 - Other specified abnormal findings of blood chemistry (4) Stroke: Status: Acute Code(s): I63.9 - Cerebral infarction, unspecified Qualifiers: CVA mechanism: unspecified Qualified Code(s): I63.9 - Cerebral infarction, unspecified Problem details: old (5) HTN (hypertension): Status: Acute Code(s): I10 - Essential (primary) hypertension Qualifiers: Hypertension type: unspecified Qualified Code(s): I10 - Essential (primary) hypertension (6) CAD (coronary artery disease): Status: Acute Code(s): I25.10 - Atherosclerotic heart disease of [place] coronary artery without angina pectoris Qualifiers: Associated angina: unspecified whether angina present Coronary Disease- Associated Artery/Lesion type: [place] artery [place] vs. transplanted heart: [place] heart Qualified Code(s): I25.10 - Atherosclerotic heart disease of [place] coronary artery without angina pectoris (7) S/P percutaneous endoscopic gastrostomy (PEG) tube placement: Status: Acute Code(s): Z93.1 - Gastrostomy status (8) Severe protein-calorie malnutrition: Status: Acute Code(s): E43 - Unspecified severe protein-calorie malnutrition (9) Paroxysmal atrial fibrillation: Status: Acute Code(s): I48.0 - Paroxysmal atrial fibrillation (10) Automatic implantable cardioverter-defibrillator in situ: Status: Acute Code(s): Z95.810 - Presence of automatic (implantable) cardiac defibrillator (11) Non-STEMI (non-ST elevated myocardial infarction): Status: Acute Code(s): I21.4 - Non-ST elevation (NSTEMI) myocardial infarction Meds Home Medications and Allergies Home Medications Medication Instructions Recorded Confirmed Type atorvastatin 80 mg tablet 80 mg PO HS Cholesterol 01/14/24 01/15/24 History famotidine 40 mg tablet 40 mg PO HS Acid Reflux 01/14/24 01/15/24 History finasteride 5 mg tablet 5 mg PO HS Prostate 01/14/24 01/15/24 History fluticasone propionate 50 1 spray intranasal DAILY allergies 01/14/24 01/14/24 History mcg/actuation nasal spray,suspension furosemide 20 mg tablet 20 mg PO DAILY Fluid 01/14/24 01/15/24 History ipratropium 0.5 mg-albuterol 3 mg 3 ml inhalation Q6HP PRN Shortness 01/14/24 01/15/24 History (2.5 mg base)/3 mL nebulization Of Breath soln metoprolol succinate 25 mg 25 mg PO DAILY High Blood Pressure 01/14/24 01/15/24 History tablet,extended release 24 hr ondansetron 4 mg disintegrating 4 mg PO Q4HP PRN Nausea 01/14/24 01/15/24 History tablet rivaroxaban 20 mg tablet (Xarelto) 20 mg PO QPMWITHMEAL Blood 01/14/24 01/15/24 History thinner/CVA sertraline 50 mg tablet 50 mg PO HS Depression 01/14/24 01/15/24 History polyethylene glycol 3350 17 gram 17 g PO DAILY Constipation 01/15/24 01/15/24 History oral powder packet (Miralax) levetiracetam 1,000 mg tablet 1,000 mg PO BID 30 days #60 tabs 01/19/24 Rx (Keppra) sacubitril 24 mg-valsartan 26 mg 1 tab PO BID 30 days #60 tabs 01/19/24 Rx tablet (Entresto) New Prescriptions to Start Prescriptions: levetiracetam [Keppra] Pal Rodriguez Allergies Allergy/AdvReac Type Severity Reaction Status Date / Time No Known Allergies Allergy Verified 01/14/24 18:14 Discharge Plan Disposition Patient Disposition: [facility] Condition: Fair Discharge Order Discharge Orders: Discharge Order (Routine); Ordered 01/19/24 Ordered By: Pal Rodriguez Follow up Plan Follow up with: Randall De La Paz MD [Staff Physician] - 01/21/24 2:30 pm Prescriptions/Medication Reconciliation: New Entresto 24-26 mg Tablet 1 tab PO BID 30 Days Qty: 60 0RF levetiracetam [Keppra] 1,000 mg tablet 1,000 mg PO BID 30 Days Qty: 60 0RF Continued atorvastatin 80 mg tablet 80 mg PO HS ipratropium-albuterol 0.5 mg-3 mg(2.5 mg base)/3 mL solution for nebulization 3 ml INHALATION Q6HP PRN (Reason: Shortness Of Breath) famotidine 40 mg tablet 40 mg PO HS furosemide 20 mg tablet 20 mg PO DAILY metoprolol succinate 25 mg tablet extended release 24 hr 25 mg PO DAILY ondansetron 4 mg tablet,disintegrating 4 mg PO Q4HP PRN (Reason: Nausea) fluticasone propionate 50 mcg/actuation spray,suspension 1 spray INTRANASAL DAILY sertraline 50 mg tablet 50 mg PO HS finasteride 5 mg tablet 5 mg PO HS Xarelto 20 mg tablet 20 mg PO QPMWITHMEAL polyethylene glycol 3350 [Miralax] 17 gram Powder In Packet 17 g PO DAILY Discontinued levetiracetam 750 mg tablet 750 mg PO BID valsartan 40 mg tablet 20 mg PO DAILY Problem Reconciliation Problems Reviewed?: Yes Patient Discharge Instructions ACTIVITY: Continue current activity DIET: continue same diet Patient Instructions: DI for Heart Attack, DI for Seizure Disorder -- Adult, DI for Cardiac Catheterization, DI for Cardioversion, DI for Automatic Cardioverter/Defibrillator Implantation, DI for Atrial Fibrillation, DI for Surgical Site Infection, Catheter-Associated Urinary Tract Infection Providers Primary Care Provider: José Luis Kaufman Admleigha Provider: Michelle Leonard Attending Provider: Michelle Leonard
[2024-01-19 08:00] VITALS: BP 94/58; PULSE 78; PULSE 80; RESP 20; TEMP 37; O2SAT 87
[2024-01-19] MEDS: EMPAGLIFLOZIN 10MG TABLET 10 MG PO (08:52)
[2024-01-19] MEDS: SACUBITRIL/VALSARTAN 24-26MG TABLET 1 EACH PO (08:52)
[2024-01-19] MEDS: METOPROLOL SUCCINATE XL 25MG TABLET 25 MG PO (08:52)
[2024-01-19] MEDS: PANTOPRAZOLE 40MG TABLET 40 MG PO (08:52)
[2024-01-19] MEDS: FAMOTIDINE 20MG TABLET 40 MG PO (08:52)
[2024-01-19] MEDS: FLUTICASONE PROP 50MCG NASAL SPRAY 16GM 1 SPRAY NS (08:54)
[2024-01-19 09:00] LABS: Chol/HDL Ratio 3.9 (1-3.5); Cholesterol 93 mg/dl (140-200); HDL Cholesterol 24 mg/dl (40-60); Triglycerides 170 mg/dl (30-150); VLDL Cholesterol 34 mg/dL (0-40)
[2024-01-19] MEDS: levETIRAcetam 1,000 MG in 0.9 % SODIUM CHLORIDE 100 ML 220 MG IV (09:00)
[2024-01-19 09:10] LABS: Direct LDL Cholesterol 48.91 mg/dL (100-129)
--- NOTE | 2024-01-19 11:44 | EXP.CARD.PN ---
Subjective Subjective Date: 01/19/24 Time: 08:30 Principal diagnosis: HFrEF, CAD Interval history: The patient is doing well status post biventricular AICD upgrade. He denies any chest pain or pressure today. He denies any shortness of breath or edema. He denies any fever, chills, nausea, vomiting, diarrhea, PND or orthopnea. The site is healing well with no signs of infection. Exam Data for Last 24 hours Vital signs and Labs for Last 24 Hours: Temp Pulse Resp BP Pulse Ox O2 Del Method O2 Flow Rate 98.6 F 78 20 94/58 L 87 L Room Air 90 01/19/24 08:00 01/19/24 08:00 01/19/24 08:00 01/19/24 08:00 01/19/24 08:00 01/19/24 10:07 01/16/24 23:00 Laboratory Results - last 24 hr 01/15/24 05:37: Levetiracetam 20.4 01/18/24 10:39: WBC 6.3, RBC 4.07 L, Hgb 12.8 L, Hct 39.7 L, MCV 97.5 H, MCH 31.5 H, MCHC 32.3, RDW 13.6, Plt Count 177, MPV 8.7, Neut % (Auto) 66.9, Lymph % (Auto) 24.7, [place] % (Auto) 5.5, Eos % (Auto) 2.5, Baso % (Auto) 0.4, Neut # (Auto) 4.2, Lymph # (Auto) 1.6, [place] # (Auto) 0.3, Eos # (Auto) 0.2, Baso # (Auto) 0.0 01/19/24 05:23: WBC 7.5, RBC 4.15 L, Hgb 13.5 L, Hct 40.6 L, MCV 97.6 H, MCH 32.5 H, MCHC 33.2, RDW 13.7, Plt Count 174, MPV 8.6, Neut % (Auto) 68.0, Lymph % (Auto) 22.3, [place] % (Auto) 6.2, Eos % (Auto) 2.9, Baso % (Auto) 0.6, Neut # (Auto) 5.1, Lymph # (Auto) 1.7, [place] # (Auto) 0.5, Eos # (Auto) 0.2, Baso # (Auto) 0.0, Sodium 140, Potassium 3.3 L, Chloride 103, Carbon Dioxide 32 H, Anion Gap 8.3, BUN 14 D, Creatinine 0.60 L, Estimated Creat Clear 73, Estimated GFR 132, Est GFR ( Amer) 160, Glucose 128 H D, Calcium 9.0, Triglycerides 170 H, Cholesterol 93 L, LDL Cholesterol Direct 48.91 L, VLDL Cholesterol 34, HDL Cholesterol 24 L, Cholesterol/HDL Ratio 3.9 H I & O for Last 24 hours: Intake & Output 01/16/24 01/17/24 01/18/24 01/19/24 23:59 23:59 23:59 23:59 Intake Total 4264 / 4264 2890 / 3916 1026 / 1648 622 / 622 Output Total 900 / 900 3300 / 4100 2100 / 2100 1125 / 1125 Balance 3364 / 3364 -410 / -184 -1074 / -452 -503 / -503 Weight 172 lb 174 lb 3.2 oz 173 lb 6.4 oz 172 lb 1 oz Microbiology Reports for the Last 24 Hours: Microbiology 01/14/24 21:00 Blood Blood Culture - Preliminary 01/14/24 20:57 Blood Blood Culture - Preliminary Constitutional Constitutional: no acute distress and average body habitus *Routine HEENT Exam Head: Present normocephalic and atraumatic ENT: Present mucous membranes moist *Routine Neck Exam Neck: Present supple, full ROM and normal carotid upstroke; Absent JVD, carotid bruit or lymphadenopathy *Routine Respiratory Exam Respiratory: Present CTA bilaterally, normal respiratory effort, able to speak in complete sentences and symmetric chest movement *Routine Cardiovascular Exam Cardiovascular: Present RRR, Normal S1 and Normal S2; Absent murmur or gallop *Routine Abdominal Exam Abdominal: Present soft and normoactive bowel sounds; Absent tenderness, distended or organomegaly *Routine Extremities Exam Extremities: Present pulses intact and normal capillary refill; Absent cyanosis, clubbing or edema Comments: Left-sided hemiparesis *Routine Skin Exam Skin: Present intact and warm; Absent erythema *Routine Neurological Exam Neurological: Present alert, oriented X3 and CN II-XII intact; Absent sensory deficit or motor deficit Routine Psychiatric Exam Psychiatric: Present normal affect Progress Note: A&P Assessment and plan (1) Breakthrough seizure: Status: Acute (2) Altered mental status: Status: Acute (3) Elevated troponin: Status: Acute (4) Stroke: Problem details: old Status: Acute (5) HTN (hypertension): Status: Acute (6) CAD (coronary artery disease): Status: Acute (7) S/P percutaneous endoscopic gastrostomy (PEG) tube placement: Status: Acute (8) Severe protein-calorie malnutrition: Status: Acute (9) Paroxysmal atrial fibrillation: Status: Acute (10) Non-STEMI (non-ST elevated myocardial infarction): Status: Acute (11) Presence of biventricular AICD: Status: Acute Assessment and Plan Assessment and Plan for All Diagnoses:: Plan: 1. The patient was admitted to the hospital following a seizure. On Keppra. Will defer to the hospitalist. 2. The patient had a non-STEMI and underwent left cardiac catheterization. The patient had patent coronary artery disease with no intervention. CAD is stable. 3. The patient does have HFrEF. His ejection fraction is 30%. Status post upgrade to biventricular AICD. Site is healing well. No signs of infection. No pain or tenderness noted. 4. Metoprolol, Entresto and Jardiance for HFrEF. 5. Continue Lasix. 6. The patient does have a history of paroxysmal atrial fibrillation. He is on Xarelto for long-term anticoagulation. 7. The patient is status post stroke with left-sided hemiparesis. He does have a PEG tube in place. 8. His blood pressure is well-controlled. 9. His LDL goal is less than 55. LDL is 48. He is on a statin. 10. No further recommendations at this time from a cardiac standpoint. The patient is stable for discharge home today from a cardiac standpoint with follow-up in 1 week for staple removal. Thank you for the opportunity to participate in the care of this patient. All recommendations and orders are per Dr. Oconnor.
[2024-01-19 12:00] VITALS: BP 90/55; PULSE 84; PULSE 90; RESP 18; TEMP 37.3; O2SAT 90
[2024-01-19] MEDS: ONDANSETRON 4MG/2ML VIAL 4 MG IV (12:35)
--- NOTE | 2024-01-19 13:16 | PC.NURSE ---
report called to félix crane at [facility].
--- NOTE | 2024-01-19 13:34 | PC.NURSE ---
TF Stopped and F/C removed.
== END 2024-01-19 14:15 | DRG 40 ==
LOC: ER 22:30 → ICU 01-15 11:56 → 2ND 01-15 16:16
PROVIDERS: Internal Medicine; Nurse Practitioner Family; Physician Assistant; Admitting Provider Internal Medicine; Emergency Provider Emergency Medicine; PCP Internal Medicine Adolescent Medicine; Visit Provider Internal Medicine
PROC: B2111ZZ Fluoroscopy of Multiple Coronary Arteries using Low Osmolar Contrast (ICD-10-PCS; principal; 2024-01-15 14:00)
PROC: 0JPT0PZ Removal of Cardiac Rhythm Related Device from Trunk Subcutaneous Tissue and Fascia, Open Approach (ICD-10-PCS; principal; 2024-01-18 13:00)
DX: G40.919 Epilepsy, unspecified, intractable, without status epilepticus (principal); E43 Unspecified severe protein-calorie malnutrition; I21.4 Non-ST elevation (NSTEMI) myocardial infarction; I50.21 Acute systolic (congestive) heart failure; I69.354 Hemiplegia and hemiparesis following cerebral infarction affecting left non-dominant side; I25.10 Atherosclerotic heart disease of native coronary artery without angina pectoris; I25.2 Old myocardial infarction; I48.0 Paroxysmal atrial fibrillation; I11.0 Hypertensive heart disease with heart failure; Z68.21 Body mass index [BMI] 21.0-21.9, adult; Z93.1 Gastrostomy status; Z79.02 Long term (current) use of antithrombotics/antiplatelets; Z79.899 Other long term (current) drug therapy; Z79.01 Long term (current) use of anticoagulants; Z80.9 Family history of malignant neoplasm, unspecified; Z83.3 Family history of diabetes mellitus; Z87.891 Personal history of nicotine dependence
CPT/HCPCS: 33225; 33264; 36415; 51702; 70450; 70496; 70498; 71045; 80048; 80053; 80061; 80177; 81001; 82140; 82550; 82803; 82962; 83605; 83690; 83735; 83880; 84484; 85025; 85610; 85730; 87040; 87086; 93005; 93306; 93454; 94640; 97110; 97163; 97165; 99152; 99153; 99291; C1725; C1769; C1882; C1900; J1644; J1953; J2405; J2704; Q9957; Q9967